=== PATIENT | female | born 1950 | race Caucasian/White ===

== ENCOUNTER 2018-12-22 18:03 | Inpatient (IN) | payer MEDICAID, MEDICARE, OTHER ==
[2018-12-22 18:54] LABS: BASO # 0.1 K/uL (0.0-0.2); BASO % 0.8 % (0.0-2.0); EOS # 0.2 K/uL (0.0-0.7); HEMOGLOBIN 10.8 g/dL (11.0-16.0); LYMPH % 31.4 % (20.0-40.0); MEAN CORPUSCULAR HEMOGLOBIN 28.3 pg (27.0-31.0); MEAN CORPUSCULAR HGB CONC 32.6 g/dL (33.0-37.0); MEAN PLATELET VOLUME 7.9 fL (7.2-11.7); MONO # 0.3 K/uL (0.0-0.8); MONO % 4.2 % (0.0-10.0); NEUT # 3.8 K/uL (1.8-7.0); NEUT % 60.6 % (50.0-75.0); RBC 3.81 Mil/uL (3.80-5.20); RED CELL DISTRIBUTION WIDTH 14.1 % (11.5-14.5); WHITE BLOOD COUNT 6.2 K/uL (4.8-10.8)
[2018-12-22 19:06] LABS: ALB/GLOB RATIO 1.2 (1.0-2.1); ALBUMIN 4.2 g/dL (3.5-5.0)
[2018-12-22 19:18] LABS: TROPONIN I 0.024 ng/mL (0.00-0.120)
--- NOTE | 2018-12-22 19:40 | C.PDOC ---
History Of Present Illness 68 year old female presents to the emergency department with complaints of near- syncope episodes for the last three days. Patient reports feeling generally week but denies chest pain, shortness of breath, nausea, and vomiting. Patient reports that her episode today was while she was in the kitchen preparing food when she felt like she was going to pass out. Time Seen by Provider: 12/22/18 18:33 Chief Complaint (Nursing): Weakness/Neurological Deficit History Per: Patient History/Exam Limitations: no limitations Onset/Duration Of Symptoms: Days (3) Current Symptoms Are (Timing): Still Present Activity At Onset Of Symptoms: Standing Seizure Or Post-ictal Symptoms: None Fall Associated With With Symptoms: No Past Medical History Reviewed: Historical Data, Nursing Documentation, Vital Signs Vital Signs: Last Vital Signs Temp 98.6 F 12/22/18 18:14 Pulse 76 12/22/18 18:14 Resp 20 12/22/18 18:14 BP 173/75 H 12/22/18 18:14 Pulse Ox 97 12/22/18 18:14 - Medical History PMH: Diabetes, HTN, Hypercholesterolemia, Chronic Kidney Disease Surgical History: No Surg Hx Family History: States: No Known Family Hx - Social History Hx Alcohol Use: No Hx Substance Use: No - Immunization History Hx Tetanus Toxoid Vaccination: No Hx Influenza Vaccination: No Hx Pneumococcal Vaccination: No Review Of Systems Except As Marked, All Systems Reviewed And Found Negative. Constitutional: Positive for: Weakness Physical Exam - Physical Exam Appears: Non-toxic, No Acute Distress Skin: Normal Color, Warm, Dry Head: Atraumatic, Normacephalic Eye(s): bilateral: Normal Inspection, PERRL, EOMI Ear(s): Bilateral: Normal Nose: Normal Oral Mucosa: Moist Neck: Normal, Supple Cardiovascular: Rhythm Regular, No Murmur Respiratory: Normal Breath Sounds, No Rales, No Rhonchi Gastrointestinal/Abdominal: Soft, No Tenderness, No Guarding, No Rebound Extremity: Normal ROM Neurological/Psych: Oriented x3, Normal Speech, Normal Cognition, Normal Motor, Normal Sensation Gait: Steady ED Course And Treatment - Laboratory Results Result Diagrams: 12/22/18 18:51 12/22/18 18:51 Lab Results: Troponin I 0.0240 ng/mL (0.00-0.120) 12/22/18 18:51 NT-Pro-B Natriuret Pep 103 pg/mL (0-900) 12/22/18 18:51 Total Bilirubin 0.3 mg/dL (0.2-1.3) 12/22/18 18:51 AST 26 U/L (14-36) 12/22/18 18:51 ALT 14 U/L (9-52) 12/22/18 18:51 Alkaline Phosphatase 85 U/L (38-126) 12/22/18 18:51 Total Protein 7.6 g/dL (6.3-8.3) 12/22/18 18:51 Albumin 4.2 g/dL (3.5-5.0) 12/22/18 18:51 Globulin 3.4 gm/dL (2.2-3.9) 12/22/18 18:51 Albumin/Globulin Ratio 1.2 (1.0-2.1) 12/22/18 18:51 Interpretation Of ECG: Normal sinus rhythm at 71bpm, normal intervals, normal axis, T-wave inversion in lead 1, AVL, and V6. O2 Sat by Pulse Oximetry: 97 (RA) Pulse Ox Interpretation: Normal Medical Decision Making Medical Decision Making: Plan: CT Head EKG Chemistry CBC CXR Glucose POC Urinalysis Disposition Discussed With Dr.: Carlos Alvarado Doctor Will See Patient In The: Hospital Counseled Patient/Family Regarding: Studies Performed, Diagnosis - Disposition Disposition: HOSPITALIZED Disposition Time: 21:28 Condition: FAIR Forms: [facility] (Amharic) - Clinical Impression Clinical Impression: Near syncope - Scribe Statement The provider has reviewed the documentation as recorded by the Scribe (Husam Connell) Provider Attestation: All medical record entries made by the Scribe were at my direction and personally dictated by me. I have reviewed the chart and agree that the record accurately reflects my personal performance of the history, physical exam, medical decision making, and the department course for this patient. I have also personally directed, reviewed, and agree with the discharge instructions and disposition.
[2018-12-22 21:14] LABS: SQUAMOUS EPITHIAL 1 /hpf (0-5); URINE BACTERIA MANY (<OCC); URINE BILIRUBIN NEGATIVE (NEGATIVE); URINE BLOOD NEGATIVE (NEGATIVE); URINE CLARITY Hazy (Clear); URINE COLOR Yellow (YELLOW); URINE GLUCOSE (UA) NORMAL (Normal); URINE LEUKOCYTE ESTERASE NEG Leu/uL (Negative); URINE PROTEIN 3+ mg/dL (NEGATIVE); URINE UROBILINOGEN NORMAL mg/dL (0.2-1.0)
--- NOTE | 2018-12-23 02:06 | CP.PCM.HP ---
<MickymarisolTa - Last Filed: 12/23/18 02:17> History of Present Illness - History of Present Illness History of Present Illness: PGY-1 History and Physical [address] Alvarado Patient is a 68 year old female with PMHx HTN, DM who presents with syncopal episode. Patient states for past 3 days she has been feeling increasingly dizzy and weak. Patient notes that symptoms roughly correspond with a medication change - patient was taken off of Losartan for worsening renal function and placed on Cardura for blood pressure. Patient believes that once she started taking Cardura she noticed herself having episodes of lightheadedness, feeling faint. This morning, patient was in the kitchen and noticed herself beginning to feel faint. She reports she tried to remain standing, but ended up falling to the floor - not sure if hit her head directly, did not lose consciousness. Patient also notes that she was recently started on Lasix as well for peripheral edema. She reports additionally that she snores at night, awakens frequently, and has been increasingly fatigued during the day and sleeping during the day over the past year. Patient was planned to go for sleep study this week prior to hospitalization. Med hx: HTN, DM, HLD All: NKA Medications: Cardura (dose unknown, recently switched as stated above), lipitor 40 mg PO HS, Levemir 50 U SC in morning and at bedtime (has been taking less based on POC glucose), Novolog 15 U SC TID (has been taking less based on POC glucose) Surgeries: None Family hx: Multiple family members with DM, HTN Social hx: Quit smoking 1986, denies drugs, alcohol PMD: None Endo: Dr. Crystal Nephro: Dr. Villar (sees most frequently) Present on Admission - Present on Admission Any Indicators Present on Admission: No Review of Systems - Constitutional Constitutional: absent: Chills, Fatigue, Fever - EENT Eyes: absent: Blurred Vision, Photophobia Nose/Mouth/Throat: absent: Nasal Congestion, Nasal Discharge - Cardiovascular Cardiovascular: Lightheadedness. absent: Chest Pain, Chest Pain at Rest, Dyspnea, Dyspnea on Exertion, Edema, Palpitations, Rapid Heart Rate - Respiratory Respiratory: Snoring. absent: Cough, Dyspnea - Gastrointestinal Gastrointestinal: absent: Diarrhea, Nausea, Vomiting - Genitourinary Genitourinary: absent: Dysuria, Flank Pain - Musculoskeletal Musculoskeletal: absent: Stiffness, Tingling - Neurological Neurological: Dizziness, Syncope, Weakness. absent: Abnormal Speech, Behavioral Changes, Confusion, Numbness, Headaches, Memory Loss - Psychiatric Psychiatric: absent: Anxiety, Depression Past Patient History - Past Social History Smoking Status: Never Smoked - CARDIAC Hx Hypercholesterolemia: Yes Hx Hypertension: Yes - RENAL Hx Chronic Kidney Disease: Yes - ENDOCRINE/METABOLIC Hx Endocrine Disorders: Yes Hx Diabetes Mellitus Type 2: Yes - PSYCHIATRIC Hx Substance Use: No - SURGICAL HISTORY Hx Surgeries: Yes Hx Section: Yes - ANESTHESIA Hx Anesthesia: No Meds Allergies/Adverse Reactions: Allergies Allergy/AdvReac Type Severity Reaction Status Date / Time No Known Allergies Allergy Verified 06/25/16 10:47 Physical Exam - Constitutional Appears: Non-toxic, No Acute Distress - Head Exam Head Exam: ATRAUMATIC, NORMOCEPHALIC - Eye Exam Eye Exam: EOMI, Normal appearance - ENT Exam ENT Exam: Mucous Membranes Moist - Neck Exam Neck exam: Positive for: Normal Inspection. Negative for: Tenderness - Respiratory Exam Respiratory Exam: Clear to Auscultation Bilateral, NORMAL BREATHING PATTERN. absent: Rhonchi, Wheezes - Cardiovascular Exam Cardiovascular Exam: REGULAR RHYTHM, +S1, +S2 - GI/Abdominal Exam GI & Abdominal Exam: Normal Bowel Sounds, Soft. absent: Tenderness - Extremities Exam Extremities exam: Negative for: pedal edema, tenderness - Neurological Exam Neurological exam: Alert, CN II-XII Intact, Oriented x3 - Psychiatric Exam Psychiatric exam: Normal Affect, Normal Mood - Skin Skin Exam: Dry, Intact Results - Vital Signs Recent Vital Signs: Last Vital Signs Temp 98.6 F 12/22/18 18:14 Pulse 97 H 12/23/18 01:00 Resp 14 12/23/18 01:00 BP 164/87 H 12/23/18 01:00 Pulse Ox 97 12/23/18 01:00 - Labs Result Diagrams: 12/22/18 18:51 12/22/18 18:51 Labs: Laboratory Results - last 24 hr 12/22/18 12/22/18 12/22/18 18:42 18:51 18:51 WBC 6.2 RBC 3.81 Hgb 10.8 L Hct 33.1 L MCV 87.0 MCH 28.3 MCHC 32.6 L RDW 14.1 Plt Count 221 MPV 7.9 Neut % (Auto) 60.6 Lymph % (Auto) 31.4 Sterling % (Auto) 4.2 Eos % (Auto) 3.0 Baso % (Auto) 0.8 Neut # (Auto) 3.8 Lymph # (Auto) 2.0 Sterling # (Auto) 0.3 Eos # (Auto) 0.2 Baso # (Auto) 0.1 Sodium 136 Potassium 4.9 Chloride 104 Carbon Dioxide 23 Anion Gap 14 BUN 54 H Creatinine 2.7 H Est GFR ( Amer) 21 Est GFR (Non-Af Amer) 18 POC Glucose (mg/dL) 173 H Random Glucose 164 H Calcium 9.0 Total Bilirubin 0.3 AST 26 ALT 14 Alkaline Phosphatase 85 Troponin I 0.0240 NT-Pro-B Natriuret Pep 103 Total Protein 7.6 Albumin 4.2 Globulin 3.4 Albumin/Globulin Ratio 1.2 Urine Color Urine Clarity Urine pH Ur Specific Lisman Urine Protein Urine Glucose (UA) Urine Ketones Urine Blood Urine Nitrate Urine Bilirubin Urine Urobilinogen Ur Leukocyte Esterase Urine WBC (Auto) Urine RBC (Auto) Ur Squamous Epith Cells Urine Bacteria 12/22/18 12/22/18 20:54 23:21 WBC RBC Hgb Hct MCV MCH MCHC RDW Plt Count MPV Neut % (Auto) Lymph % (Auto) Sterling % (Auto) Eos % (Auto) Baso % (Auto) Neut # (Auto) Lymph # (Auto) Sterling # (Auto) Eos # (Auto) Baso # (Auto) Sodium Potassium Chloride Carbon Dioxide Anion Gap BUN Creatinine Est GFR ( Amer) Est GFR (Non-Af Amer) POC Glucose (mg/dL) 121 H Random Glucose Calcium Total Bilirubin AST ALT Alkaline Phosphatase Troponin I NT-Pro-B Natriuret Pep Total Protein Albumin Globulin Albumin/Globulin Ratio Urine Color Yellow Urine Clarity Hazy Urine pH 5.0 Ur Specific Lisman 1.009 Urine Protein 3+ H Urine Glucose (UA) Normal Urine Ketones Negative Urine Blood Negative Urine Nitrate Negative Urine Bilirubin Negative Urine Urobilinogen Normal Ur Leukocyte Esterase Neg Urine WBC (Auto) 6 H Urine RBC (Auto) < 1 Ur Squamous Epith Cells 1 Urine Bacteria Many H Assessment & Plan - Assessment and Plan (Free Text) Assessment: Syncope; Suspect 2/2 New HTN Medication -Initial orthostatics WNL --Repeat orthostatics Q6 -Fall precautions -Home Cardura, Lasix held -EKG/ROMIs WNL -F/u AM trops -F/u CT head, CXR Renal failure, chronic -Cr 2.7 -Patient says she will obtain recent medical records to compare change in creatinine - f/u DM -A1C - f/u -Consistent carb diet -Levemir 40 mg Q12, Novolog 10 mg with meals -Accuchecks ACHS HLD -Crestor 20 mg PO HS Assessment and plan d/w Dr. Jenny Emanuel, PGY-1 <Carlos Alvarado P - Last Filed: 12/23/18 07:22> Results - Vital Signs Recent Vital Signs: Last Vital Signs Temp 98 F 12/23/18 04:15 Pulse 78 12/23/18 04:20 Resp 18 12/23/18 04:15 BP 189/72 H 12/23/18 04:20 Pulse Ox 98 12/23/18 04:15 - Labs Result Diagrams: 12/22/18 18:51 12/22/18 18:51 Labs: Laboratory Results - last 24 hr 12/22/18 12/22/18 12/22/18 18:42 18:51 18:51 WBC 6.2 RBC 3.81 Hgb 10.8 L Hct 33.1 L MCV 87.0 MCH 28.3 MCHC 32.6 L RDW 14.1 Plt Count 221 MPV 7.9 Neut % (Auto) 60.6 Lymph % (Auto) 31.4 Sterling % (Auto) 4.2 Eos % (Auto) 3.0 Baso % (Auto) 0.8 Neut # (Auto) 3.8 Lymph # (Auto) 2.0 Sterling # (Auto) 0.3 Eos # (Auto) 0.2 Baso # (Auto) 0.1 Sodium 136 Potassium 4.9 Chloride 104 Carbon Dioxide 23 Anion Gap 14 BUN 54 H Creatinine 2.7 H Est GFR ( Amer) 21 Est GFR (Non-Af Amer) 18 POC Glucose (mg/dL) 173 H Random Glucose 164 H Calcium 9.0 Total Bilirubin 0.3 AST 26 ALT 14 Alkaline Phosphatase 85 Total Creatine Kinase CK-MB (Mass) Troponin I 0.0240 NT-Pro-B Natriuret Pep 103 Total Protein 7.6 Albumin 4.2 Globulin 3.4 Albumin/Globulin Ratio 1.2 Urine Color Urine Clarity Urine pH Ur Specific Lisman Urine Protein Urine Glucose (UA) Urine Ketones Urine Blood Urine Nitrate Urine Bilirubin Urine Urobilinogen Ur Leukocyte Esterase Urine WBC (Auto) Urine RBC (Auto) Ur Squamous Epith Cells Urine Bacteria 12/22/18 12/22/18 12/23/18 20:54 23:21 05:26 WBC RBC Hgb Hct MCV MCH MCHC RDW Plt Count MPV Neut % (Auto) Lymph % (Auto) Sterling % (Auto) Eos % (Auto) Baso % (Auto) Neut # (Auto) Lymph # (Auto) Sterling # (Auto) Eos # (Auto) Baso # (Auto) Sodium Potassium Chloride Carbon Dioxide Anion Gap BUN Creatinine Est GFR ( Amer) Est GFR (Non-Af Amer) POC Glucose (mg/dL) 121 H Random Glucose Calcium Total Bilirubin AST ALT Alkaline Phosphatase Total Creatine Kinase 235 H CK-MB (Mass) 2.07 Troponin I 0.0220 NT-Pro-B Natriuret Pep Total Protein Albumin Globulin Albumin/Globulin Ratio Urine Color Yellow Urine Clarity Hazy Urine pH 5.0 Ur Specific Lisman 1.009 Urine Protein 3+ H Urine Glucose (UA) Normal Urine Ketones Negative Urine Blood Negative Urine Nitrate Negative Urine Bilirubin Negative Urine Urobilinogen Normal Ur Leukocyte Esterase Neg Urine WBC (Auto) 6 H Urine RBC (Auto) < 1 Ur Squamous Epith Cells 1 Urine Bacteria Many H 12/23/18 07:09 WBC RBC Hgb Hct MCV MCH MCHC RDW Plt Count MPV Neut % (Auto) Lymph % (Auto) Sterling % (Auto) Eos % (Auto) Baso % (Auto) Neut # (Auto) Lymph # (Auto) Sterling # (Auto) Eos # (Auto) Baso # (Auto) Sodium Potassium Chloride Carbon Dioxide Anion Gap BUN Creatinine Est GFR ( Amer) Est GFR (Non-Af Amer) POC Glucose (mg/dL) 118 H Random Glucose Calcium Total Bilirubin AST ALT Alkaline Phosphatase Total Creatine Kinase CK-MB (Mass) Troponin I NT-Pro-B Natriuret Pep Total Protein Albumin Globulin Albumin/Globulin Ratio Urine Color Urine Clarity Urine pH Ur Specific Lisman Urine Protein Urine Glucose (UA) Urine Ketones Urine Blood Urine Nitrate Urine Bilirubin Urine Urobilinogen Ur Leukocyte Esterase Urine WBC (Auto) Urine RBC (Auto) Ur Squamous Epith Cells Urine Bacteria Attending/Attestation - Attestation I have personally seen and examined this patient.: Yes I have fully participated in the care of the patient.: Yes I have reviewed all pertinent clinical information: Yes Notes (Text): 12/23/18 07:18 Near syncope due most likely form newer bp med, symptoms started 3 days, and med started 4 days, EKG showing LVH with strain pattern, suggesting chronic htn, lvh Leg edema from above and venous insufficiency CRI Suspect sleep apnea from the symptoms, body habitus, scheduled out patient sleep apnea Obese Insulin dependent dm Plan Observe bri Gaspar orthostatic bp Counselled about above Echo as out patient with pmd Will try to communicate with pmd in [place].
[2018-12-23 06:03] LABS: CK-MB 2.07 ng/mL (0.0-3.38); TROPONIN I 0.022 ng/mL (0.00-0.120)
[2018-12-23] MEDS ORDERED: Glucagon Recombinant 1 mg Inj IM PRN ×2 (07:18→07:45)
[2018-12-23] MEDS ORDERED: Dextrose 50% SYRINGE Inj (50 ml) IVP PRN (07:18)
--- NOTE | 2018-12-23 07:36 | CP.PCM.PN ---
<Dipti Ivey V - Last Filed: 12/23/18 19:43> Objective - Vital Signs/Intake and Output Vital Signs (last 24 hours): Temp Pulse Resp BP Pulse Ox 98.4 F 80 18 166/76 H 96 12/23/18 16:00 12/23/18 18:41 12/23/18 18:41 12/23/18 18:41 12/23/18 18:41 Intake and Output: 12/23/18 12/24/18 18:59 06:59 Intake Total 800 Balance 800 - Medications Medications: Current Medications Amlodipine Besylate (Norvasc) 5 mg PO DAILY [facility] Amlodipine Besylate (Norvasc) 5 mg PO STAT STA Stop: 12/23/18 19:43 Dextrose (Dextrose 50% Inj) 0 ml IVP .STAT PRN; Protocol PRN Reason: Hypoglycemia Protocol Dextrose (Glutose 15) 0 gm PO .ONCE PRN; Protocol PRN Reason: Hypoglycemia Protocol Dextrose (Dextrose 50% Inj) 0 ml IV STAT PRN; Protocol PRN Reason: Hypoglycemia Protocol Dextrose (Glutose 15) 0 gm PO ONCE PRN; Protocol PRN Reason: Hypoglycemia Protocol Famotidine (Pepcid) 20 mg PO DAILY [facility] Glucagon (Glucagen Diagnostic Kit) 0 mg IM .STAT PRN; Protocol PRN Reason: Hypoglycemia Protocol Glucagon (Glucagen Diagnostic Kit) 0 mg IM STAT PRN; Protocol PRN Reason: Hypoglycemia Protocol Heparin Sodium (Porcine) (Heparin) 5,000 units SC Q8 [facility] Last Admin: 12/23/18 13:42 Dose: 5,000 units Dextrose (Dextrose 5% In Water 1000 Ml) 1,000 mls @ 0 mls/hr IV .Q0M PRN; Protocol PRN Reason: Hypoglycemia Protocol Dextrose (Dextrose 5% In Water 1000 Ml) 1,000 mls @ 0 mls/hr IV .Q0M PRN; Pro tocol PRN Reason: Hypoglycemia Protocol Insulin Aspart (Novolog) 10 unit SC AC [facility] Last Admin: 12/23/18 16:14 Dose: Not Given Insulin Detemir (Levemir) 40 unit SC Q12 [facility] Last Admin: 12/23/18 10:01 Dose: 40 units Rosuvastatin Calcium (Crestor) 20 mg PO HS [facility] - Labs Labs: 12/23/18 07:54 12/23/18 05:26 Attending/Attestation - Attestation I have personally seen and examined this patient.: Yes I have fully participated in the care of the patient.: Yes I have reviewed all pertinent clinical information, including history, physical exam and plan: Yes Notes (Text): Patient seen, examined. This is a 68-year-old female with a 20-year history of diabetes insulin-dependent who has underlying kidney disease per daughter a GFR of 18. She was recently started on Cardura last by her software engineer web services in [place] who she started seeing. She has been noted since starting Cardura that she has been lightheaded and dizzy last dose of the car door was on Sunday. She is also been taking Lasix to reduce the lower extremity swelling as well. Which she is currently off. This morning patient was hypertensive urgency with a systolic around 180s given 1 dose of Norvasc 5 mg once. On repeat shortly after patient is noted to be orthostatic which is surprising considering how she how she appears. We did change BP cuff as well just to accommodate her obese habitus but she is not orthostatic noted. We did consult cardiology given how l abile her blood pressure is. Noted d-dimer is negative troponins are negative. She does have flipped T waves noted in lead I 5 and 6 no prior. She is noted to be eating some melon diet wearing a high fat is typical. 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 Patient is undergoing workup with her software engineer web services in [place] as outpatient. Assessment/Plan 1. Near syncopal episode Liable Blood Pressure Assessment/Plan * monitor on telemetry * CT head: no acute intracranial abnormality. chronic microvascular ischemic changes. punctate left basal gangliar infarct. * CXR: no acute disease * D-dimer <200 * Follow up ECHO, carotid dopplers * Trop x3 neg * ABRAHAM: CK 235 CKMB 2.07 Trop 0.0220 * Orthostatics Lying 153/57 Sitting 145/65 Standing 130/60 * EKG: SR with flipped T waves in lead 1, V5, V6 * Cardiology Dr. Velázquez consulted, help appreciated * Patient is off her Cardura/Lasix 2. Renal failure, likely chronic Assessment/Plan * Cr 2.8 * Continue to monitor * patient is being followed by her nephrology in [facility] 3. Anemia, likely chronic Assessment/Plan * H/H 10.5/32.6 * MCV 87 * check reticulocyte count, ferritin, iron studies 4. History of hypertension Assessment/Plan * d/c cadura/lasix * start Norvasc 5mg PO once day 5. History of DM, insulin dependent Assessment/Plan * Patient states she has uncontrolled blood sugar levels when she was in [place] but has been taking her insulin as prescribed after she arrived to the last month * Levemir 40 unit SC Q12 * Novolog 10 unit SC AC * A1c 7.9 * Patient counseled on the importance of following up with ophthalmology and podiatry for her annual diabetic screening exams and changing overrall diet 6. History of hyperlipidemia Assessment/Plan * Crestor 20mg PO HS * Lipid panel pending * Counseled on the importance of changing diet. 7. Prophylaxis: Assessment/Plan * Heparin 5000 units SC Q8 * Heart healthy diet * PT/OT eval * Fall precautions <Elysia Tomlin - Last Filed: 12/23/18 19:59> Subjective - Date & Time of Evaluation Date of Evaluation: 12/23/18 Time of Evaluation: 07:36 - Subjective Subjective: Progress Note for Hospitalist service Patient seen and examined at bedside. She states she was recently switched from Losartan to Cardura and started on Lasix for lower extremity edema by a Nephrology at [facility], which she has been taking since 12/19/18. She admits to feeling lightheaded since starting these medications. She states she does not feel lightheaded or weak currently. She denies fevers, chills, headache, chest pain, shortness of breath, palpitations, abdominal pain, nausea, vomiting, diarrhea, leg pain. She recently traveled here from [place]. She denies sick contacts. Admits to have tingling of her lower extremities, however denies being told she has neuropathy. Objective - Vital Signs/Intake and Output Vital Signs (last 24 hours): Temp Pulse Resp BP Pulse Ox 98 F 78 18 189/72 H 98 12/23/18 04:15 12/23/18 04:20 12/23/18 04:15 12/23/18 04:20 12/23/18 04:15 Intake and Output: 12/23/18 12/23/18 06:59 18:59 Intake Total 0 Balance 0 - Medications Medications: Current Medications Amlodipine Besylate (Norvasc) 5 mg PO DAILY [facility] Dextrose (Dextrose 50% Inj) 0 ml IVP .STAT PRN; Protocol PRN Reason: Hypoglycemia Protocol Dextrose (Glutose 15) 0 gm PO .ONCE PRN; Protocol PRN Reason: Hypoglycemia Protocol Glucagon (Glucagen Diagnostic Kit) 0 mg IM .STAT PRN; Protocol PRN Reason: Hypoglycemia Protocol Heparin Sodium (Porcine) (Heparin) 5,000 units SC Q8 [facility] Last Admin: 12/23/18 06:26 Dose: 5,000 units Dextrose (Dextrose 5% In Water 1000 Ml) 1,000 mls @ 0 mls/hr IV .Q0M PRN; Protocol PRN Reason: Hypoglycemia Protocol Insulin Aspart (Novolog) 10 unit SC AC [facility] Insulin Detemir (Levemir) 40 unit SC Q12 [facility] Rosuvastatin Calcium (Crestor) 20 mg PO HS [facility] - Labs Labs: 12/22/18 18:51 12/22/18 18:51 - Constitutional Appears: Well, No Acute Distress - Head Exam Head Exam: ATRAUMATIC, NORMOCEPHALIC - Eye Exam Eye Exam: EOMI, PERRL - ENT Exam ENT Exam: Mucous Membranes Moist - Neck Exam Neck Exam: Full ROM. absent: Tenderness - Respiratory Exam Respiratory Exam: Clear to Ausculation Bilateral, NORMAL BREATHING PATTERN. absent: Rales, Rhonchi, Wheezes, Respiratory Distress, Stridor - Cardiovascular Exam Cardiovascular Exam: REGULAR RHYTHM, +S1, +S2. absent: Gallop, Rubs, Murmur - GI/Abdominal Exam GI & Abdominal Exam: Soft, Normal Bowel Sounds. absent: Distended, Firm, Guarding, Rigid, Tenderness, Organomegaly - Extremities Exam Extremities Exam: Normal Capillary Refill. absent: Calf Tenderness, Pedal Edema - Back Exam Back Exam: NORMAL INSPECTION. absent: CVA tenderness (L), CVA tenderness (R) - Neurological Exam Neurological Exam: Alert, Awake, Oriented x3 Additional comments: No tremor noted. - Psychiatric Exam Psychiatric exam: Normal Affect, Normal Mood - Skin Skin Exam: Dry, Intact, Warm Assessment and Plan - Assessment and Plan (Free Text) Assessment: 68 year old female with history of diabetes, hypertension and hyperlipidemia who presents with near syncopal episode after recently starting new blood pressure medication. Plan: Near syncopal episode CT head: no acute intracranial abnormality. chronic microvascular ischemic changes. punctate left basal gangliar infarct. CXR: no acute disease D-dimer <200 Follow up ECHO, carotid dopplers Trop x3 neg ABRAHAM: CK 235 CKMB 2.07 Trop 0.0220 Orthostatics Lying 153/57 Sitting 145/65 Standing 130/60 Repeat orthostatic Lying 176/78 Sitting 170/74 Standing 166/79 EKG: SR with flipped T waves in lead 1, V5, V6 Cardiology Dr. Velázquez consulted, help appreciated Renal failure, likely chronic BUN 50 Cr 2.8 Continue to monitor Anemia, mild H/H 10.5/32.6 MCV 87 Continue to monitor for signs of bleeding History of hypertension Norvasc 5mg PO daily BP labile, repeat Norvasc 5mg PO x1 given History of DM, uncontrolled Patient states she has uncontrolled blood sugar levels when she was in [place] but has been taking her insulin as prescribed after she arrived to the last month Levemir 40 unit SC Q12 Novolog 10 unit SC AC A1c 7.9 Patient counseled on the importance of following up with ophthalmology and podiatry. Patient was also counseling on diet. Hypoglycemic protocol History of hyperlipidemia Crestor 20mg PO HS Lipid panel pending Counseled on the importance of changing diet. Fish oil supplement Prophylaxis: Heparin 5000 units SC Q8 Heart healthy diet Pepcid 20mg PO Case discussed with Dr. Uche Tomlin, PGY1
[2018-12-23] MEDS ORDERED: Dextrose 50% SYRINGE Inj (50 ml) IV PRN (07:45)
--- NOTE | 2018-12-23 07:55 | CT ---
Date of service: 12/22/2018 PROCEDURE: CT HEAD WITHOUT CONTRAST. HISTORY: dizziness COMPARISON: None available. TECHNIQUE: Axial computed tomography images were obtained through the head/brain without intravenous contrast. Radiation dose: Total exam DLP = 1207.06 mGy-cm. This CT exam was performed using one or more of the following dose reduction techniques: Automated exposure control, adjustment of the mA and/or kV according to patient size, and/or use of iterative reconstruction technique. FINDINGS: HEMORRHAGE: No intracranial hemorrhage. BRAIN: No mass effect or edema. Scattered focal lucencies in the subcortical and periventricular white matter suggestive for chronic microvascular ischemic change. Punctate hypodensity in the left basal ganglia may represent a small lacunar infarct. VENTRICLES: Unremarkable. No hydrocephalus. CALVARIUM: Unremarkable. PARANASAL SINUSES: Mild mucosal thickening of the ethmoid air cells. MASTOID AIR CELLS: Unremarkable as visualized. No inflammatory changes. OTHER FINDINGS: None. IMPRESSION: No acute intracranial abnormality. Chronic microvascular ischemic changes. Punctate left basal ganglia lacunar infarct. If symptoms persists, consider correlation with MRI. A preliminary report was generated at 8:53 p.m. on 12/22/[address] Cisco Zhou from [facility].
[2018-12-23 07:56] LABS: ALB/GLOB RATIO 1.3 (1.0-2.1); ALBUMIN 4.1 g/dL (3.5-5.0); CALCIUM 9.1 mg/dl (8.6-10.4)
[2018-12-23 07:59] LABS: BASO # 0.1 K/uL (0.0-0.2); BASO % 1.2 % (0.0-2.0); EOS # 0.2 K/uL (0.0-0.7); HEMOGLOBIN 10.5 g/dL (11.0-16.0); LYMPH # 2.5 K/uL (1.0-4.3); MEAN CELL VOLUME 87.8 fL (81.0-99.0); MEAN CORPUSCULAR HEMOGLOBIN 28.3 pg (27.0-31.0); MEAN CORPUSCULAR HGB CONC 32.3 g/dL (33.0-37.0); MEAN PLATELET VOLUME 7.8 fL (7.2-11.7); MONO # 0.3 K/uL (0.0-0.8); MONO % 5.1 % (0.0-10.0); NEUT % 48.7 % (50.0-75.0); RBC 3.72 Mil/uL (3.80-5.20); RED CELL DISTRIBUTION WIDTH 14.1 % (11.5-14.5); WHITE BLOOD COUNT 6.2 K/uL (4.8-10.8)
[2018-12-23] MEDS: (Novolog) Insulin Aspart, Recombinant 100 u/ml 10 ml vial SC SCH ×3 (08:41→16:14)
[2018-12-23] MEDS: Insulin Detemir 100 units/ml Vial (Levemir) SC SCH ×2 (10:01→22:13)
[2018-12-23 10:35] LABS: CK-MB 1.85 ng/mL (0.0-3.38); TROPONIN I 0.021 ng/mL (0.00-0.120)
--- NOTE | 2018-12-23 12:04 | RAD ---
Date of service: 12/22/2018 PROCEDURE: CHEST RADIOGRAPH, 1 VIEW HISTORY: SOB COMPARISON: None available. FINDINGS: LUNGS: The lungs are well inflated and clear. PLEURA: No pneumothorax or pleural effusion. CARDIOVASCULAR: Mild cardiomegaly. No aortic atherosclerotic calcifications present. OSSEOUS STRUCTURES: Within normal limits for the patient's age. VISUALIZED UPPER ABDOMEN: Normal. OTHER FINDINGS: None. IMPRESSION: No active pulmonary disease.
--- NOTE | 2018-12-23 21:34 | CON ---
DATE: 12/23/2016 CARDIOLOGY CONSULTATION: REASON FOR CONSULTATION: Dizziness and near-syncope. HISTORY OF PRESENT ILLNESS: The patient is a 68-year-old morbidly obese female from the [facility], presents because of dizziness and near-syncope. The patient describes that she was standing in the kitchen, she felt lightheaded and about to faint and for the patient to avoid it, she started to move fast, started jumping around to refresh herself. The patient denies any recent fall. The patient was brought in to the hospital by her daughter. The dizziness had subsided upon arrival to the emergency room. The patient denies any single extremity weakness or difficulty articulating her speech. The patient is unaware of any prior cardiac history. The patient does not recall experiencing palpitation. The patient denies any prior nausea, vomiting, or diarrhea. The patient denies any prior similar clinical scenario. PAST MEDICAL HISTORY: Hypertension and diabetes mellitus. The patient has severe infection. MEDICATIONS: Crestor 20 mg once a day, subcutaneous heparin 5000 units every 8 hours, Norvasc 5 mg once a day. REVIEW OF SYSTEMS: No nausea or vomiting. No fever or chills. No retrosternal chest pain. The patient does not recall palpitations. PHYSICAL EXAMINATION: GENERAL: The patient is an elderly female, who does not appear to be in any distress. VITAL SIGNS: Blood pressure 153/57, heart rate 79, temperature 97.9, respirations 20. HEENT: Pale conjunctivae. CHEST: Clear. HEART: S1 and S2, regular and distant. ABDOMEN: Soft. EXTREMITIES: Trace leg edema. LABORATORY DATA: SMA-7: Sodium 138, potassium 4.3, chloride 108, CO2 of 21, glucose 117, BUN 50, creatinine 2.8. Two sets of troponin are 0.024 and 0.022 and the second one is 0.021. D-dimers are stable at 200. Today's hemoglobin and hematocrit at 10.5 and 32.6. White count and platelet counts are within normal limits. CT scan without contrast showed no acute findings. Chronic microvascular ischemic changes. Chronic basal ganglia and lacunar infarcts. If symptoms persist, consider correlation with MRI. Chest x-ray shows no active pulmonary disease. ASSESSMENT: 1. Dizziness and near-syncope. 2. Hypertension. 3. Mild anemia. 4. Chronic renal insufficiency. RECOMMENDATIONS: Continue currently Crestor 20 mg once a day, heparin 5000 units subcutaneous every 8 hours, Norvasc at 5 mg once a day. Obtain 12-lead EKG, echocardiogram, carotid Doppler and consider brain MRI. Jose Velázquez MD
[2018-12-24 06:29] LABS: BASO # 0.1 K/uL (0.0-0.2); BASO % 1.3 % (0.0-2.0); EOS # 0.3 K/uL (0.0-0.7); EOS % 4.7 % (0.0-4.0); HEMOGLOBIN 11.4 g/dL (11.0-16.0); LYMPH % 48.1 % (20.0-40.0); MEAN CELL VOLUME 87.6 fL (81.0-99.0); MEAN CORPUSCULAR HEMOGLOBIN 28.2 pg (27.0-31.0); MEAN CORPUSCULAR HGB CONC 32.2 g/dL (33.0-37.0); MEAN PLATELET VOLUME 8.1 fL (7.2-11.7); MONO # 0.3 K/uL (0.0-0.8); MONO % 4.3 % (0.0-10.0); NEUT # 2.6 K/uL (1.8-7.0); NEUT % 41.6 % (50.0-75.0); RBC 4.03 Mil/uL (3.80-5.20); RED CELL DISTRIBUTION WIDTH 14.1 % (11.5-14.5); WHITE BLOOD COUNT 6.2 K/uL (4.8-10.8)
[2018-12-24 06:44] LABS: IRON 64 ug/dL (37-170)
[2018-12-24 06:47] LABS: ALB/GLOB RATIO 1.3 (1.0-2.1); ALBUMIN 4.3 g/dL (3.5-5.0); CALCIUM 9.5 mg/dl (8.6-10.4)
[2018-12-24 06:54] LABS: % IRON SATURATION 22 (20-55); TOTAL IRON BINDING CAPACITY 288 ug/dL (250-450)
[2018-12-24 06:55] LABS: % IRON SATURATION 20 (20-55); TOTAL IRON BINDING CAPACITY 283 ug/dL (250-450)
--- NOTE | 2018-12-24 07:32 | US ---
Renal ultrasound HISTORY: Renal insufficiency. Comparison: None available. Technique: Real-time sonography was performed through the kidneys. FINDINGS: Study somewhat limited secondary to portable technique. Right kidney: 10.3 x 4.3 x 5.4 centimeters. Mild increased echogenicity of the renal parenchymal cortex suggestive for medical renal disease. No calculi or hydronephrosis. Visualized aorta grossly preserved. Left Kidney: 11.2 x 4.2 x 4.6 centimeters. Mild increased echogenicity of the renal parenchymal cortex suggestive for medical renal disease. No calculi or hydronephrosis. Visualized urinary bladder is grossly preserved. Impression: Mild increased echogenicity of the bilateral renal parenchymal cortices suggestive for medical renal disease. Clinical correlation.
[2018-12-24] MEDS: Insulin Detemir 100 units/ml Vial (Levemir) SC SCH ×2 (09:15→22:45)
[2018-12-24] MEDS: (Novolog) Insulin Aspart, Recombinant 100 u/ml 10 ml vial SC SCH ×3 (09:15→17:40)
--- NOTE | 2018-12-24 09:33 | CP.PCM.PN ---
Subjective - Date & Time of Evaluation Date of Evaluation: 12/24/18 Time of Evaluation: 09:30 - Subjective Subjective: Medical attending note: Patient seen and examined. patient reports she feels foggy. denies chest pain, denies cough, denies abdominal pain, denies nausea/denies vomitting, denies constipation denies dysuria. Discussed with patients nurse, patient saturating 50-60 oxygen overnight, likely suspecting sleep apnea. pending ABG this morning. Patient reports she was scheduled for outpatient sleep study tomorrow but is not being followed by pulmonary. patient is also orthostatic: SBP 180/90s resting and upright 112/50s; discussed with cardio, start gentle hydration and awaiting echocardiogram. Objective - Vital Signs/Intake and Output Vital Signs (last 24 hours): Temp Pulse Resp BP Pulse Ox 98 F 72 14 190/80 H 97 12/24/18 04:00 12/23/18 22:11 12/23/18 22:11 12/23/18 22:11 12/23/18 22:11 Intake and Output: 12/24/18 12/24/18 06:59 18:59 Intake Total 620 Output Total 1100 Balance -480 - Medications Medications: Current Medications Amlodipine Besylate (Norvasc) 5 mg PO DAILY [facility] Last Admin: 12/24/18 09:15 Dose: 5 mg Dextrose (Dextrose 50% Inj) 0 ml IVP .STAT PRN; Protocol PRN Reason: Hypoglycemia Protocol Dextrose (Glutose 15) 0 gm PO .ONCE PRN; Protocol PRN Reason: Hypoglycemia Protocol Dextrose (Dextrose 50% Inj) 0 ml IV STAT PRN; Protocol PRN Reason: Hypoglycemia Protocol Dextrose (Glutose 15) 0 gm PO ONCE PRN; Protocol PRN Reason: Hypoglycemia Protocol Famotidine (Pepcid) 20 mg PO DAILY [facility] Last Admin: 12/24/18 09:15 Dose: 20 mg Glucagon (Glucagen Diagnostic Kit) 0 mg IM .STAT PRN; Protocol PRN Reason: Hypoglycemia Protocol Glucagon (Glucagen Diagnostic Kit) 0 mg IM STAT PRN; Protocol PRN Reason: Hypoglycemia Protocol Heparin Sodium (Porcine) (Heparin) 5,000 units SC Q8 [facility] Last Admin: 12/24/18 05:31 Dose: 5,000 units Dextrose (Dextrose 5% In Water 1000 Ml) 1,000 mls @ 0 mls/hr IV .Q0M PRN; Protocol PRN Reason: Hypoglycemia Protocol Dextrose (Dextrose 5% In Water 1000 Ml) 1,000 mls @ 0 mls/hr IV .Q0M PRN; Protocol PRN Reason: Hypoglycemia Protocol Sodium Chloride (Sodium Chloride 0.9%) 1,000 mls @ 75 mls/hr IV .[id number] [facility] Insulin Aspart (Novolog) 10 unit SC AC [facility] Last Admin: 12/24/18 09:15 Dose: Not Given Insulin Detemir (Levemir) 40 unit SC Q12 [facility] Last Admin: 12/24/18 09:15 Dose: Not Given Rosuvastatin Calcium (Crestor) 20 mg PO HS [facility] Last Admin: 12/23/18 22:12 Dose: 20 mg - Labs Labs: 12/24/18 06:25 12/24/18 06:25 - Constitutional Appears: Non-toxic, No Acute Distress - Head Exam Head Exam: NORMAL INSPECTION - Eye Exam Eye Exam: EOMI - ENT Exam ENT Exam: Mucous Membranes Moist - Respiratory Exam Respiratory Exam: Clear to Ausculation Bilateral, NORMAL BREATHING PATTERN. absent: Rales, Rhonchi, Wheezes - Cardiovascular Exam Cardiovascular Exam: REGULAR RHYTHM, +S1, +S2 - GI/Abdominal Exam GI & Abdominal Exam: Soft, Normal Bowel Sounds. absent: Distended, Firm, Guarding, Rigid, Tenderness, Rebound - Extremities Exam Extremities Exam: absent: Pedal Edema, Tenderness - Neurological Exam Neurological Exam: Alert, Awake, Oriented x3 - Psychiatric Exam Psychiatric exam: Normal Affect, Normal Mood - Skin Skin Exam: Dry, Intact, Normal Color, Warm Attending/Attestation - Attestation I have personally seen and examined this patient.: Yes I have fully participated in the care of the patient.: Yes I have reviewed all pertinent clinical information, including history, physical exam and plan: Yes Notes (Text): Assessment/Plan 1. Near syncopal episode Liable Blood Pressure--Orthostatic Hypotension Assessment/Plan * symptomatinc orthostatic hypotension * pending echo/brain mri * gentle iv hydration started today * monitor on telemetry * CT head: no acute intracranial abnormality. chronic microvascular ischemic changes. punctate left basal gangliar infarct. * pending Brain MRI w/o contrast * pending echocardiogram * pending official cartoid doppler * CXR: no acute disease * D-dimer <200 * Trop x3 neg * ABRAHAM: CK 235 CKMB 2.07 Trop 0.0220 * Orthostatics Lying 153/57 Sitting 145/65 Standing 130/60 * EKG: SR with flipped T waves in lead 1, V5, V6 * Cardiology Dr. Velázquez consulted, help appreciated * Patient is off her Cardura/Lasix since admission 2. Renal failure, likely chronic Assessment/Plan * Cr 2.8 * Continue to monitor * patient is being followed by her nephrology in [facility] * Renal official report available in the chart 3. Anemia, likely chronic Assessment/Plan * H/H 10.5/32.6 * MCV 87 * Reticulocyte count low; ferritin normal; iron studies normal * likely secondary renal disease 4. History of hypertension Assessment/Plan * d/c cadura/lasix * start Norvasc 5mg PO once day 5. History of DM, insulin dependent Assessment/Plan * Patient states she has uncontrolled blood sugar levels when she was in [place] but has been taking her insulin as prescribed after she arrived to the last month * Levemir 40 unit SC Q12 * Novolog 10 unit SC AC * A1c 7.9 * Patient counseled on the importance of following up with ophthalmology and podiatry for her annual diabetic screening exams and changing overrall diet 6. History of hyperlipidemia Assessment/Plan * Crestor 20mg PO HS * Lipid panel available in the emr * Counseled on the importance of changing diet. 7. Hypoxia Assessment/Plan * suspecting sleep apnea * ABG ordered * pulmonary consult obtained 8. 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 Prophylaxis: Assessment/Plan * Heparin 5000 units SC Q8 * Heart healthy diet * PT/OT eval * Fall precautions * neurocheck q4H
[2018-12-24] MEDS: Sodium Chloride 0.9% 1,000 ML IV SCH ×2 (09:38→23:55)
[2018-12-24 11:49] LABS: ARTERIAL BLOOD GAS HCO3 23.5 mmol/L (21-28); ARTERIAL BLOOD GAS HEMOGLOBIN 12.6 g/dL (11.7-17.4); ARTERIAL BLOOD GAS PCO2 42 mm/Hg (35-45); ARTERIAL BLOOD GAS PH 7.36 (7.35-7.45); ARTERIAL BLOOD GAS PO2 76 mm/Hg (80-100)
--- NOTE | 2018-12-24 14:44 | MRI ---
Date of service: 12/24/2018 PROCEDURE: MRI BRAIN WITHOUT CONTRAST HISTORY: Near syncope: Dizziness. COMPARISON: Comparison made with prior CT scan of the brain dated 12/22/2018. TECHNIQUE: Multiplanar, multisequence MR images of the brain were obtained without intravenous contrast enhancement. FINDINGS: HEMORRHAGE: No acute parenchymal, subarachnoid or extra-axial hemorrhage. DWI: No evidence of acute acute or subacute infarcts seen on diffusion imaging. BRAIN PARENCHYMA: There are multiple small focal areas of increased T2 signal seen scattered about the deep and subcortical white matter both cerebral hemispheres as well as to a lesser degree both basal nuclei. Changes are nonspecific though most likely represent chronic sequela of small vessel disease. None of these changes exhibit restricted diffusion.. Partially empty sella Mild generalized volume loss. VENTRICLES: No obstructive hydrocephalus. CRANIUM: Unremarkable. ORBITS: Orbits and contents grossly unremarkable. PARANASAL SINUSES/MASTOIDS: Note made of a mucous retention cyst right maxillary sinus VASCULAR SYSTEM: Visualized major vascular flow voids at skull base patent. OTHER FINDINGS: None. IMPRESSION: No evidence of acute intracranial hemorrhage or infarctions. Mild chronic white matter ischemic changes as well as to a lesser degree both basal nuclei.. Mild generalized volume loss.
--- NOTE | 2018-12-24 17:55 | PN ---
DATE: 12/24/2018 SUBJECTIVE: The patient is still having postural hypotension, but denies any dizziness while standing. PHYSICAL EXAMINATION: VITAL SIGNS: Blood pressure 190/80, heart rate 52, temperature 98, and respirations 14. HEENT: Normocephalic. CHEST: Clear. Heart sounds are regular. EXTREMITIES: Trace leg edema. LABORATORY DATA: Today's BUN and creatinine are 45 and 2.8 respectively. Today's glucose level is 114. Today's hemoglobin, hematocrit, white count and platelet count are within normal limits. Renal ultrasound, there is mild increased echogenicity, bilateral renal parenchymal cortices suggestive of medical renal disease. ASSESSMENT: 1. Dizziness and near syncope. 2. Postural hypotension, rule out dysautonomia. 3. Rule out dehydration. 4. Chronic renal insufficiency. 5. Hyperlipidemia. RECOMMENDATIONS: I discussed the case with and the patient is receiving normal saline . Continue Crestor 20 mg once a day, subcutaneous heparin 5000 units every 8 hours. [facility] is on hold. I will review the echocardiac study performed today. Jose Velázquez MD
--- NOTE | 2018-12-24 20:27 | CARD ---
APPROVED REPORT Date of service: 12/24/2018 EXAM: Two-dimensional and M-mode echocardiogram with Doppler and color Doppler. INDICATION Syncope RISK FACTORS Hypertension Hyperlipidemia Diabetes 2D DIMENSIONS IVSd1.6 (0.7-1.1cm)LVDd4.0 (3.9-5.9cm) PWd1.3 (0.7-1.1cm)LA Daydhx30 (18-58mL) LVDs3.0 (2.5-4.0cm)FS (%) 25.8 % LVEF (%)51.3 (>50%)LVEF (Hooks's)66.04 % M-Mode DIMENSIONS Left Atrium (MM)3.60 (2.5-4.0cm)Aortic Root3.36 (2.2-3.7cm) Aortic Cusp Exc.2.10 (1.5-2.0cm) Mitral Valve MV E Hamnuqmh90.3cm/sMV A Kkeqhkqs13.4cm/sE/A ratio0.7 TDI Lateral E' Peak V5.77cm/sMedial E' Peak V3.77cm/sE/Lateral E'9.9 E/Medial E'15.2 Tricuspid Valve TR Peak [id number]/sTR Peak Gr.[id number] <Conclusion> normal size la,lv & ra rv. normal lv wall otion & systolic funciton with lvef of 65-70%. moderately severe lvh . lv diastolic dysfunction grade one. sclerotic trileaflet aortic valve. nromal mitral,tv & pv. mild tr with mildly elevated pulmonary systolic pressures of 36 mm of hg. no pericardial effusion. normal size aortic root & ivc.
[2018-12-25] MEDS ORDERED: Labetalol 25mg/5ml Syringe IVP STA ×2 (05:07→05:11)
[2018-12-25] MEDS ORDERED: Enalaprilat 2.5 MG/2 ML IV ONE (05:36)
[2018-12-25 06:25] LABS: BASO # 0.1 K/uL (0.0-0.2); EOS # 0.3 K/uL (0.0-0.7); EOS % 5.5 % (0.0-4.0); HEMOGLOBIN 10.7 g/dL (11.0-16.0); LYMPH # 1.8 K/uL (1.0-4.3); LYMPH % 35.7 % (20.0-40.0); MEAN CELL VOLUME 88.1 fL (81.0-99.0); MEAN CORPUSCULAR HEMOGLOBIN 28.7 pg (27.0-31.0); MEAN CORPUSCULAR HGB CONC 32.6 g/dL (33.0-37.0); MEAN PLATELET VOLUME 7.6 fL (7.2-11.7); MONO # 0.2 K/uL (0.0-0.8); MONO % 4.7 % (0.0-10.0); NEUT # 2.6 K/uL (1.8-7.0); NEUT % 53.1 % (50.0-75.0); RBC 3.74 Mil/uL (3.80-5.20); RED CELL DISTRIBUTION WIDTH 14.3 % (11.5-14.5); WHITE BLOOD COUNT 4.9 K/uL (4.8-10.8)
[2018-12-25 06:37] LABS: ALB/GLOB RATIO 1.2 (1.0-2.1); ALBUMIN 3.8 g/dL (3.5-5.0); CALCIUM 8.9 mg/dl (8.6-10.4)
[2018-12-25 08:28] VITALS: O2SAT 100
[2018-12-25] MEDS: (Novolog) Insulin Aspart, Recombinant 100 u/ml 10 ml vial SC SCH ×4 (08:36→17:09)
--- NOTE | 2018-12-25 09:30 | CP.PCM.PN ---
<Dipti Ivey V - Last Filed: 12/25/18 10:35> Objective - Vital Signs/Intake and Output Vital Signs (last 24 hours): Temp Pulse Resp BP Pulse Ox 98.1 F 74 15 136/52 L 100 12/25/18 04:00 12/25/18 08:04 12/25/18 08:04 12/25/18 08:04 12/25/18 08:04 Intake and Output: 12/25/18 12/25/18 06:59 18:59 Intake Total 1100 Output Total 1000 Balance 100 - Medications Medications: Current Medications Amlodipine Besylate (Norvasc) 5 mg PO DAILY [facility] Last Admin: 12/24/18 09:15 Dose: 5 mg Dextrose (Dextrose 50% Inj) 0 ml IVP .STAT PRN; Protocol PRN Reason: Hypoglycemia Protocol Dextrose (Glutose 15) 0 gm PO .ONCE PRN; Protocol PRN Reason: Hypoglycemia Protocol Dextrose (Dextrose 50% Inj) 0 ml IV STAT PRN; Protocol PRN Reason: Hypoglycemia Protocol Dextrose (Glutose 15) 0 gm PO ONCE PRN; Protocol PRN Reason: Hypoglycemia Protocol Famotidine (Pepcid) 20 mg PO DAILY [facility] Last Admin: 12/24/18 09:15 Dose: 20 mg Glucagon (Glucagen Diagnostic Kit) 0 mg IM .STAT PRN; Protocol PRN Reason: Hypoglycemia Protocol Glucagon (Glucagen Diagnostic Kit) 0 mg IM STAT PRN; Protocol PRN Reason: Hypoglycemia Protocol Heparin Sodium (Porcine) (Heparin) 5,000 units SC Q8 [facility] Last Admin: 12/25/18 07:00 Dose: 5,000 units Dextrose (Dextrose 5% In Water 1000 Ml) 1,000 mls @ 0 mls/hr IV .Q0M PRN; Protocol PRN Reason: Hypoglycemia Protocol Dextrose (Dextrose 5% In Water 1000 Ml) 1,000 mls @ 0 mls/hr IV .Q0M PRN; Protocol PRN Reason: Hypoglycemia Protocol Insulin Aspart (Novolog) 10 unit SC AC [facility] Last Admin: 12/25/18 08:38 Dose: Not Given Insulin Detemir (Levemir) 40 unit SC Q12 [facility] Last Admin: 12/24/18 22:45 Dose: Not Given Rosuvastatin Calcium (Crestor) 20 mg PO HS [facility] Last Admin: 12/24/18 21:35 Dose: 20 mg - Labs Labs: 12/25/18 06:22 12/25/18 06:22 - Constitutional Appears: Non-toxic, No Acute Distress - Head Exam Head Exam: NORMAL INSPECTION - Eye Exam Eye Exam: EOMI - ENT Exam ENT Exam: Mucous Membranes Moist - Respiratory Exam Respiratory Exam: Clear to Ausculation Bilateral, NORMAL BREATHING PATTERN. absent: Rales, Rhonchi, Wheezes - Cardiovascular Exam Cardiovascular Exam: REGULAR RHYTHM, +S1, +S2 - GI/Abdominal Exam GI & Abdominal Exam: Distended (obese habitus), Soft, Normal Bowel Sounds. absent: Firm, Guarding, Rigid, Tenderness, Rebound - Extremities Exam Extremities Exam: absent: Pedal Edema, Tenderness - Neurological Exam Neurological Exam: Alert, Awake, Oriented x3 - Psychiatric Exam Psychiatric exam: Normal Affect, Normal Mood - Skin Skin Exam: Dry, Intact, Normal Color, Warm Assessment and Plan (1) Hypertensive crisis Status: Acute (2) Orthostatic hypotension Status: Acute (3) Lipid disorder Status: Acute (4) Diabetes Status: Acute (5) Anxiety Status: Acute (6) Prophylactic measure Status: Acute Attending/Attestation - Attestation Notes (Text): Early this morning around 530am patient systolic blood pressure 10/30/1947 I spoke with the nighttime resident. The patient complaint was primarily anxiety he had given a dose of Vasotec 2.5 mg IV x1 hydralazine 25 mg once, and Xanax 0.5 mg p.o by nighttime resident. Her anxiety at the blood pressure seen if worsening as she is looking at the screening blood pressure when I asked him if he checked orthostatics he did not. Presently is about 10 AM patient status to see if there is still significant difference systolic resting versus systolic while standing. Discussed with nurse who will when she has been patient is more awake to check and orthostatics daughter present at bedside. Also to note blood p ressure was taking whether quite small her blood pressure cuff size 11 I did advise nighttime resident for further teaching to use a bigger blood pressure cuff and to instruct nursing to use a blood pressure cuff I did speak with her present daytime nurse then to check her blood pressure with a bigger cuff and to endorse to her colleagues. I have held her Norvasc given blood pressure is about 130s over 50s right now.. Patient seen and examined at bedside with daughter present. Patient is much relaxed. We went over the events of earlier this morning. Patient noted no headache no chest pain no blurry vision noted just overlying anxiety and unable to rest. We did explain to patient as well as daughter at bedside in terms of using a BP cuff upper lobe bigger given morbid obesity. We did advise did not look at the screen constantly for the will now allow the body to relax. We did advise blood pressure checks at least 2-3 times a day with a diary. Patient is not lightheaded or dizzy presently patient blood pressure about 121/51 patient is a lot longer orthostatic per discussion with nurse this morning. We will assess physical therapy today to see if patient is lightheaded in light of new blood pressure we did explain terms of echo findings of MRI as well as carotid Doppler. We will need to follow-up with cardiology to see what ideal antihypertensive therapy is for the patient. <Elysia Tomlin - Last Filed: 12/25/18 20:50> Subjective - Date & Time of Evaluation Date of Evaluation: 12/25/18 Time of Evaluation: 09:30 - Subjective Subjective: Progress Note for Hospitalist service Patient seen and examined at bedside. She states she felt very anxious earlier this morning when she was found to have high blood pressure with a smaller cuff. She states she did not have any headache, blurry vision, dizziness, chest pain when she had elevated blood pressures. Patient denies fevers, chills, headache, dizziness, chest pain, shortness of breath, abdominal pain, nausea, vomiting, diarrhea, constipation. Objective - Vital Signs/Intake and Output Vital Signs (last 24 hours): Temp Pulse Resp BP Pulse Ox 98.1 F 74 15 136/52 L 100 12/25/18 04:00 12/25/18 08:04 12/25/18 08:04 12/25/18 08:04 12/25/18 08:04 Intake and Output: 12/25/18 12/25/18 06:59 18:59 Intake Total 1100 Output Total 1000 Balance 100 - Medications Medications: Current Medications Amlodipine Besylate (Norvasc) 5 mg PO DAILY [facility] Last Admin: 12/24/18 09:15 Dose: 5 mg Dextrose (Dextrose 50% Inj) 0 ml IVP .STAT PRN; Protocol PRN Reason: Hypoglycemia Protocol Dextrose (Glutose 15) 0 gm PO .ONCE PRN; Protocol PRN Reason: Hypoglycemia Protocol Dextrose (Dextrose 50% Inj) 0 ml IV STAT PRN; Protocol PRN Reason: Hypoglycemia Protocol Dextrose (Glutose 15) 0 gm PO ONCE PRN; Protocol PRN Reason: Hypoglycemia Protocol Famotidine (Pepcid) 20 mg PO DAILY [facility] Last Admin: 12/24/18 09:15 Dose: 20 mg Glucagon (Glucagen Diagnostic Kit) 0 mg IM .STAT PRN; Protocol PRN Reason: Hypoglycemia Protocol Glucagon (Glucagen Diagnostic Kit) 0 mg IM STAT PRN; Protocol PRN Reason: Hypoglycemia Protocol Heparin Sodium (Porcine) (Heparin) 5,000 units SC Q8 [facility] Last Admin: 12/25/18 07:00 Dose: 5,000 units Dextrose (Dextrose 5% In Water 1000 Ml) 1,000 mls @ 0 mls/hr IV .Q0M PRN; Protocol PRN Reason: Hypoglycemia Protocol Dextrose (Dextrose 5% In Water 1000 Ml) 1,000 mls @ 0 mls/hr IV .Q0M PRN; Protocol PRN Reason: Hypoglycemia Protocol Insulin Aspart (Novolog) 10 unit SC AC [facility] Last Admin: 12/25/18 08:38 Dose: Not Given Insulin Detemir (Levemir) 40 unit SC Q12 [facility] Last Admin: 12/24/18 22:45 Dose: Not Given Rosuvastatin Calcium (Crestor) 20 mg PO HS [facility] Last Admin: 12/24/18 21:35 Dose: 20 mg - Labs Labs: 12/25/18 06:22 12/25/18 06:22 - Constitutional Appears: Non-toxic, No Acute Distress - Head Exam Head Exam: ATRAUMATIC, NORMOCEPHALIC - Eye Exam Eye Exam: EOMI, PERRL - ENT Exam ENT Exam: Mucous Membranes Moist - Neck Exam Neck Exam: Full ROM. absent: Tenderness - Respiratory Exam Respiratory Exam: Clear to Ausculation Bilateral, NORMAL BREATHING PATTERN - Cardiovascular Exam Cardiovascular Exam: REGULAR RHYTHM, +S1, +S2 - GI/Abdominal Exam GI & Abdominal Exam: Distended, Soft, Normal Bowel Sounds - Extremities Exam Extremities Exam: absent: Calf Tenderness, Pedal Edema, Tenderness - Neurological Exam Neurological Exam: Alert, Awake, Oriented x3 - Psychiatric Exam Psychiatric exam: Normal Affect, Normal Mood - Skin Skin Exam: Dry, Intact, Warm Assessment and Plan - Assessment and Plan (Free Text) Assessment: 68 year old female with history of hypertension, diabetes, hyperlipidemia who presents with near syncopal episode after change in blood pressure medication. Plan: Near syncopal episode CT head: no acute intracranial abnormality. chronic microvascular ischemic changes. punctate left basal gangliar infarct. CXR: no acute disease D-dimer <200 ECHO Moderate to severe LVH carotid dopplers within normal limits. Trop x3 neg ABRAHAM: CK 235 CKMB 2.07 Trop 0.0220 Patient no longer orthostatic. EKG: SR with flipped T waves in lead 1, V5, V6 Brain MRI: mild white matter changes Cardiology Dr. Velázquez consulted, help appreciated Recommended avoiding RINKU inhibitiors, hypertension likely not postural in cherelle ure. Renal failure, likely chronic BUN 41 Cr 2.4 Continue to monitor renal US: increased echogenicity consistent with renal disease. Anemia, mild H/H 10.7/32.9 Continue to monitor for signs of bleeding Iron studies within normal limits History of hypertension Norvasc 5mg PO daily Repeat Norvasc 5mg PO x1 given prior to discharge. Overnight, patient had a smaller blood pressure cuff on and had blood pressure r eading of systolic 260. She was given Hydralazine 25mg PO, Vasotec IV and Xanax. On exam, patient was sleepy with systolic BP in 120s. History of DM, uncontrolled Patient states she has uncontrolled blood sugar levels when she was in [place] but has been taking her insulin as prescribed after she arrived to the last month Levemir 40 unit SC Q12 Novolog 10 unit SC AC A1c 7.9 Patient counseled on the importance of following up with ophthalmology and podiatry. Patient was also counseling on diet. Hypoglycemic protocol History of hyperlipidemia Crestor 10mg PO HS -renally dosed Lipid panel TG 246 Cholesterol 230 LDL 114 HDL 40 Counseled on the importance of changing diet. Fish oil supplement Sleep apnea, Pulmonary Dr. Christy consulted Will need outpatient sleep studies. Prophylaxis: Heparin 5000 units SC Q8 Heart healthy diet Pepcid 20mg PO Case discussed with Dr. Uche Tomlin, PGY1
[2018-12-25] MEDS: Insulin Detemir 100 units/ml Vial (Levemir) SC SCH (11:19)
--- NOTE | 2018-12-25 13:31 | CP.PCM.CON ---
History of Present Illness - History of Present Illness History of Present Illness: Patient is a 68 y/o female with a PMH of HTN, DM, HLD who presented to the ER on 12/22 for a syncopal episode. Earlier that morning she felt faint and fell to the floor in her kitchen but did not lose consciousness. For three days prior to presentation she states she felt dizzy, weak and light-headed. These changes corresponded with removal of Losartan for worsening renal function and replacement with Cardura instead for HTN. She was also recently started on Lasix for peripheral edema. In addition, she reports that she snores at night, awakens frequently throughout the night, and feels increasingly fatigued during the day. Pulm consulted for evaluation of sleep apnea. Patient seen and examined at bedside. Reports to feel anxious but otherwise no complaints. She denies cough and dyspnea. Physical Exam Gen: AAOx3 Cardio: RRR, no murmur Pulm: CTA b/l Abd: Soft, non-distended A/P - Patient is stable and should follow up outpatient for workup of sleep apnea Past Patient History - Past Social History Smoking Status: Former Smoker - CARDIAC Hx Hypercholesterolemia: Yes Hx Hypertension: Yes - RENAL Hx Chronic Kidney Disease: Yes - ENDOCRINE/METABOLIC Hx Diabetes Mellitus Type 2: Yes - MUSCULOSKELETAL/RHEUMATOLOGICAL Hx Falls: No - PSYCHIATRIC Hx Substance Use: No - SURGICAL HISTORY Hx Surgeries: Yes Hx Section: Yes - ANESTHESIA Hx Anesthesia: Yes Hx Anesthesia Reactions: No Meds Allergies/Adverse Reactions: Allergies Allergy/AdvReac Type Severity Reaction Status Date / Time No Known Allergies Allergy Verified 06/25/16 10:47 - Medications Medications: Current Medications Amlodipine Besylate (Norvasc) 5 mg PO DAILY [facility] Last Admin: 12/24/18 09:15 Dose: 5 mg Dextrose (Dextrose 50% Inj) 0 ml IVP .STAT PRN; Protocol PRN Reason: Hypoglycemia Protocol Dextrose (Glutose 15) 0 gm PO .ONCE PRN; Protocol PRN Reason: Hypoglycemia Protocol Dextrose (Dextrose 50% Inj) 0 ml IV STAT PRN; Protocol PRN Reason: Hypoglycemia Protocol Dextrose (Glutose 15) 0 gm PO ONCE PRN; Protocol PRN Reason: Hypoglycemia Protocol Famotidine (Pepcid) 20 mg PO DAILY [facility] Last Admin: 12/25/18 11:19 Dose: 20 mg Glucagon (Glucagen Diagnostic Kit) 0 mg IM .STAT PRN; Protocol PRN Reason: Hypoglycemia Protocol Glucagon (Glucagen Diagnostic Kit) 0 mg IM STAT PRN; Protocol PRN Reason: Hypoglycemia Protocol Heparin Sodium (Porcine) (Heparin) 5,000 units SC Q8 [facility] Last Admin: 12/25/18 07:00 Dose: 5,000 units Dextrose (Dextrose 5% In Water 1000 Ml) 1,000 mls @ 0 mls/hr IV .Q0M PRN; Prot ocol PRN Reason: Hypoglycemia Protocol Dextrose (Dextrose 5% In Water 1000 Ml) 1,000 mls @ 0 mls/hr IV .Q0M PRN; Protocol PRN Reason: Hypoglycemia Protocol Insulin Aspart (Novolog) 10 unit SC AC [facility] Last Admin: 12/25/18 12:44 Dose: Not Given Insulin Detemir (Levemir) 40 unit SC Q12 [facility] Last Admin: 12/25/18 11:19 Dose: 40 units Rosuvastatin Calcium (Crestor) 20 mg PO HS [facility] Last Admin: 12/24/18 21:35 Dose: 20 mg Results - Vital Signs Recent Vital Signs: Last Vital Signs Temp 98.2 F 12/25/18 08:00 Pulse 90 12/25/18 10:05 Resp 18 12/25/18 10:05 BP 121/55 L 12/25/18 10:05 Pulse Ox 100 12/25/18 10:05 - Labs Result Diagrams: 12/25/18 06:22 12/25/18 06:22 Labs: Laboratory Results - last 24 hr 12/25/18 12/25/18 12/25/18 06:22 06:22 06:22 WBC 4.9 RBC 3.74 L Hgb 10.7 L Hct 32.9 L MCV 88.1 MCH 28.7 MCHC 32.6 L RDW 14.3 Plt Count 225 MPV 7.6 Neut % (Auto) 53.1 Lymph % (Auto) 35.7 [place] % (Auto) 4.7 Eos % (Auto) 5.5 H Baso % (Auto) 1.0 Neut # (Auto) 2.6 Lymph # (Auto) 1.8 [place] # (Auto) 0.2 Eos # (Auto) 0.3 Baso # (Auto) 0.1 Sodium 138 Potassium 4.6 Chloride 109 H Carbon Dioxide 24 Anion Gap 9 L BUN 41 H Creatinine 2.4 H Est GFR ( Amer) 24 Est GFR (Non-Af Amer) 20 Random Glucose 154 H D Calcium 8.9 Phosphorus 3.6 Magnesium 2.1 Total Bilirubin 0.3 AST 22 ALT 20 Alkaline Phosphatase 63 Total Protein 7.1 Albumin 3.8 Globulin 3.3 Albumin/Globulin Ratio 1.2
[2018-12-25 18:26] VITALS: PULSE 85
[2018-12-25 18:41] VITALS: BP 163/84; RESP 13; TEMP 98.6
--- NOTE | 2018-12-25 20:09 | CP.PCM.DIS ---
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 Physician Instructions: Reason For Exam: spiritual Time Spent in preparation of Discharge (in minutes): 40 Hospital Course - Lab Results Lab Results: Micro Results 12/23/18 05:26 Nose MRSA Culture (Admit) - Final MRSA NOT DETECTED Most Recent Lab Values WBC 4.9 K/uL (4.8-10.8) 12/25/18 06:22 RBC 3.74 Mil/uL (3.80-5.20) L 12/25/18 06:22 Hgb 10.7 g/dL (11.0-16.0) L 12/25/18 06:22 Hct 32.9 % (34.0-47.0) L 12/25/18 06:22 MCV 88.1 fL (81.0-99.0) 12/25/18 06:22 MCH 28.7 pg (27.0-31.0) 12/25/18 06:22 MCHC 32.6 g/dL (33.0-37.0) L 12/25/18 06:22 RDW 14.3 % (11.5-14.5) 12/25/18 06:22 Plt Count 225 K/uL (130-400) 12/25/18 06:22 MPV 7.6 fL (7.2-11.7) 12/25/18 06:22 Neut % (Auto) 53.1 % (50.0-75.0) 12/25/18 06:22 Lymph % (Auto) 35.7 % (20.0-40.0) 12/25/18 06:22 [place] % (Auto) 4.7 % (0.0-10.0) 12/25/18 06:22 Eos % (Auto) 5.5 % (0.0-4.0) H 12/25/18 06:22 Baso % (Auto) 1.0 % (0.0-2.0) 12/25/18 06:22 Neut # (Auto) 2.6 K/uL (1.8-7.0) 12/25/18 06:22 Lymph # (Auto) 1.8 K/uL (1.0-4.3) 12/25/18 06:22 [place] # (Auto) 0.2 K/uL (0.0-0.8) 12/25/18 06:22 Eos # (Auto) 0.3 K/uL (0.0-0.7) 12/25/18 06:22 Baso # (Auto) 0.1 K/uL (0.0-0.2) 12/25/18 06:22 Retic Count 1.4 % (0.5-1.5) 12/24/18 06:25 D-Dimer, Quantitative < 200 ng/mlDDU (0-243) 12/23/18 10:04 Puncture Site Lb 12/24/18 11:44 pCO2 42 mm/Hg (35-45) 12/24/18 11:44 pO2 76 mm/Hg (80-100) L 12/24/18 11:44 HCO3 23.5 mmol/L (21-28) 12/24/18 11:44 ABG pH 7.36 (7.35-7.45) 12/24/18 11:44 ABG Total CO2 25.0 mmol/L (22-28) 12/24/18 11:44 ABG O2 Saturation 96.0 % (95-98) 12/24/18 11:44 ABG Base Excess -1.8 mmol/L (-2.0-3.0) 12/24/18 11:44 ABG Hemoglobin 12.6 g/dL (11.7-17.4) 12/24/18 11:44 ABG Carboxyhemoglobin 1.2 % (0.5-1.5) 12/24/18 11:44 POC ABG HHb (Measured) 3.9 % (0.0-5.0) 12/24/18 11:44 ABG Methemoglobin 0.5 % (0.0-3.0) 12/24/18 11:44 Aron Test Na 12/24/18 11:44 A-a O2 Difference 21.0 mm/Hg 12/24/18 11:44 Respiratory Index 0.3 12/24/18 11:44 Hgb O2 Saturation 94.4 % (95.0-98.0) L 12/24/18 11:44 FiO2 21.0 % 12/24/18 11:44 Sodium 138 mmol/L (132-148) 12/25/18 06:22 Potassium 4.6 mmol/L (3.6-5.2) 12/25/18 06:22 Chloride 109 mmol/L (98-107) H 12/25/18 06:22 Carbon Dioxide 24 mmol/L (22-30) 12/25/18 06:22 Anion Gap 9 (10-20) L 12/25/18 06:22 BUN 41 mg/dL (7-17) H 12/25/18 06:22 Creatinine 2.4 mg/dL (0.7-1.2) H 12/25/18 06:22 Est GFR ( Amer) 24 12/25/18 06:22 Est GFR (Non-Af Amer) 20 12/25/18 06:22 POC Glucose (mg/dL) 109 mg/dL (65-110) 12/24/18 07:41 Random Glucose 154 mg/dL (65-105) H D 12/25/18 06:22 Hemoglobin A1c 7.9 % (4.2-6.5) H 12/23/18 05:26 Calcium 8.9 mg/dl (8.6-10.4) 12/25/18 06:22 Phosphorus 3.6 mg/dL (2.5-4.5) 12/25/18 06:22 Magnesium 2.1 mg/dL (1.6-2.3) 12/25/18 06:22 Iron 64 ug/dL (37-170) 12/24/18 06:25 TIBC 283 ug/dL (250-450) 12/24/18 06:25 % Saturation 20 (20-55) 12/24/18 06:25 Ferritin 159.0 ng/mL 12/24/18 06:25 Total Bilirubin 0.3 mg/dL (0.2-1.3) 12/25/18 06:22 AST 22 U/L (14-36) 12/25/18 06:22 ALT 20 U/L (9-52) 12/25/18 06:22 Alkaline Phosphatase 63 U/L (38-126) 12/25/18 06:22 Total Creatine Kinase 208 U/L (30-135) H 12/23/18 10:04 CK-MB (Mass) 1.85 ng/mL (0.0-3.38) 12/23/18 10:04 Troponin I 0.0210 ng/mL (0.00-0.120) 12/23/18 10:04 NT-Pro-B Natriuret Pep 103 pg/mL (0-900) 12/22/18 18:51 Total Protein 7.1 g/dL (6.3-8.3) 12/25/18 06:22 Albumin 3.8 g/dL (3.5-5.0) 12/25/18 06:22 Globulin 3.3 gm/dL (2.2-3.9) 12/25/18 06:22 Albumin/Globulin Ratio 1.2 (1.0-2.1) 12/25/18 06:22 Triglycerides 246 mg/dL (0-149) H 12/24/18 06:25 Cholesterol 230 mg/dL (0-199) H 12/24/18 06:25 LDL Cholesterol Direct 114 mg/dL (0-129) 12/24/18 06:25 HDL Cholesterol 40 mg/dL (30-70) 12/24/18 06:25 Urine Color Yellow (YELLOW) 12/22/18 20:54 Urine Clarity Hazy (Clear) 12/22/18 20:54 Urine pH 5.0 (5.0-8.0) 12/22/18 20:54 Ur Specific [place] 1.009 (1.003-1.030) 12/22/18 20:54 Urine Protein 3+ mg/dL (NEGATIVE) H 12/22/18 20:54 Urine Glucose (UA) Normal mg/dL (Normal) 12/22/18 20:54 Urine Ketones Negative mg/dL (NEGATIVE) 12/22/18 20:54 Urine Blood Negative (NEGATIVE) 12/22/18 20:54 Urine Nitrate Negative (NEGATIVE) 12/22/18 20:54 Urine Bilirubin Negative (NEGATIVE) 12/22/18 20:54 Urine Urobilinogen Normal mg/dL (0.2-1.0) 12/22/18 20:54 Ur Leukocyte Esterase Neg Carolyn/uL (Negative) 12/22/18 20:54 Urine WBC (Auto) 6 /hpf (0-5) H 12/22/18 20:54 Urine RBC (Auto) < 1 /hpf (0-3) 12/22/18 20:54 Ur Squamous Epith Cells 1 /hpf (0-5) 12/22/18 20:54 Urine Bacteria Many (<OCC) H 12/22/18 20:54 - Hospital Course Hospital Course: On admission: Patient is a 68 year old female with medical history of HTN, DM who presents with syncopal episode. Patient states for past 3 days she has been feeling increasingly dizzy and weak. Patient notes that symptoms roughly correspond with a medication change - patient was taken off of Losartan for worsening renal function and placed on Cardura for blood pressure. Patient believes that once she started taking Cardura she noticed herself having episodes of lightheadedness, feeling faint. This morning, patient was in the kitchen and noticed herself beginning to feel faint. She reports she tried to remain standing, but ended up falling to the floor - not sure if hit her head directly, did not lose consciousness. Patient also notes that she was recently started on Lasix as well for peripheral edema. She reports additionally that she snores at night, awakens frequently, and has been increasingly fatigued during the day and sleeping during the day over the past year. Patient was planned to go for sleep study this week prior to hospitalization. Hospital course: Patient was admitted for near syncopal episode after she experienced dizziness after recent addition of anti-hypertensive. Patient had serial cardiac enzymes which were negative, however EKG showed flipped T waves in Lead 1, V5, V6. Cardiology Dr. Velázquez consulted, help appreciated. ECHO revealed patient had moderate to severe LVH consistent with history of hypertension. Patient was found to have elevated Creatinine. Renal ultrasound revealed echogenicity consistent with renal disease. Iron studies ordered after patient was found to be mildly anemic were within normal limits. During her hospitalization, patient was found to have labile blood pressure. Patient was discharged with Norvasc 10mg PO. Patient was found to have A1c 7.9, treated with Levemir and Novolog. Patient was found have abnormal lipid panel, started on renal dose of Crestor. Discussion with patient regarding the importance of changing diet. Patient was provided with script for outpatient sleep studies. Upon discharge, patient was walking around without any complaints of dizziness, not found to be orthostatic without any syncopal episodes. Imaging: CT head: no acute intracranial abnormality. chronic microvascular ischemic changes. punctate left basal gangliar infarct. CXR: no acute disease ECHO Moderate to severe LVH Carotid dopplers within normal limits. Brain MRI: mild white matter changes Renal US: increased echogenicity consistent with renal disease. Discharge instructions: Please follow up with your Residential Leasing Manager on Sunday as scheduled. Keep a blood pressure diary measuring your blood pressure in the morning and at night. You have been provided with a prescription from Dr. Christy for a sleep study. Please call the phone number on the script to make an appointment. Please follow up with your medical affairs director within 1 to 2 weeks for further management of your diabetes. Please modify your diet as discussed earlier by decreasing amount of animal based food, and increasing amount of vegetables and plant based proteins like beans and lentils in your diet. Please return to the Emergency Department if you feel faint, faint, experience dizziness, chest pain or shortness of breath. Prescriptions provided: Aspirin 81mg by mouth once daily Lipitor 20mg by mouth once daily Norvasc 10mg by mouth once daily Discharge Exam - Head Exam Head Exam: ATRAUMATIC, NORMOCEPHALIC - Eye Exam Eye Exam: EOMI, PERRL - ENT Exam ENT Exam: Mucous Membranes Moist - Neck Exam Neck exam: Full Rom - Respiratory Exam Respiratory Exam: Clear to PA & Lateral, NORMAL BREATHING PATTERN. absent: Rales, Rhonchi, Wheezes, Respiratory Distress, Stridor - Cardiovascular Exam Cardiovascular Exam: REGULAR RHYTHM, +S1, +S2. absent: Gallop, Rubs, Systolic Murmur - GI/Abdominal Exam GI & Abdominal Exam: Normal Bowel Sounds, Soft. absent: Distended, Guarding, Mass, Rebound, Rigid, Tenderness - Extremities Exam Extremities exam: pedal pulses present Additional comments: no calf tenderness, no pedal edema - Back Exam Back exam: absent: CVA tenderness (L), CVA tenderness (R) - Neurological Exam Neurological exam: Alert, CN II-XII Intact, Oriented x3 - Psychiatric Exam Psychiatric exam: Normal Affect, Normal Mood - Skin Skin Exam: Dry, Intact, Warm Discharge Plan - Discharge Medications Prescriptions: RX: amLODIPine [Norvasc] 10 mg PO DAILY #30 tab Aspirin [Aspirin EC] 81 mg PO DAILY #30 tablet. RX: Atorvastatin [Lipitor] 20 mg PO DAILY #30 tab - Follow Up Plan Condition: STABLE Disposition: HOME/ ROUTINE Instructions: Heart Healthy Diet, Syncope (Fainting) (DC), Near Fainting (DC) Additional Instructions: Please follow up with your Residential Leasing Manager on Sunday as scheduled. Keep a blood pressure diary measuring your blood pressure in the morning and at night. You have been provided with a prescription from Dr. Christy for a sleep study. Please call the phone number on the script to make an appointment. Please follow up wi th your medical affairs director within 1 to 2 weeks for further management of your diabetes. Please modify your diet as discussed earlier by decreasing amount of animal based food, and increasing amount of vegetables and plant based proteins like beans and lentils in your diet. Please return to the Emergency Department if you feel faint, faint, experience dizziness, chest pain or shortness of breath. Prescriptions provided: Aspirin 81mg by mouth once daily Lipitor 20mg by mouth once daily Norvasc 10mg by mouth once daily <Dipti Ivey V - Last Filed: 12/25/18 23:37> Provider - Provider Date of Admission: 12/23/18 21:25 Attending physician: Dipti Ivey DO Consults: 12/23/18 11:03 Cardiology Consult Routine Comment: Consulting Provider: Jose Velázquez Consulting Physician: Jose Velázquez Reason for Consult: abnormal ekg, nearsynope, liable bp 12/24/18 09:24 Pulmonology Consult Routine Comment: Consulting Provider: Kendell Christy Consulting Physician: Kendell Christy Reason for Consult: eval sleep apnea 12/25/18 10:18 Pastoral Care Referral Routine 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 Patient walking around no dizziness no lightheadedness. Discussed case with cardiology this afternoon. Initially recommended for clonidine however and insight fair postural hypotension discussed. Neurovascular patient. Patient has follow-up with her vice president medical affairs next Sunday at [facility]. Patient advised to make a blood pressure diary to check at least once in the morning once the evening advised for appropriate pressure cuff. Obese habitus, I have personally shown her in terms of how her arms to rest at the level of the heart as well as when she was a pharmacy to get her blood pressure checked patient discharged on the Norvasc 10 mg once a day at least 30 pills to be adjusted by her vice president medical affairs on follow-up visits. With blood pressure diary since (2) Orthostatic hypotension Status: Resolved Comment: Likely secondary to Cardura. Cardura held during hospitalization. Patient orthostatics improved. Patient is no longer orthostatic. Patient walking around doing well day of discharge no lightheadedness and dizziness (3) Lipid disorder Status: Chronic Comment: Lipid panel taken during hospitalization. Patient noted has a [place] diet which is usually high in fat. Statin adjusted given creatinine clearance. Lipitor adjusted on discharge. Patient is aware that she needs to make serious dietary and exercise modification to preserve her overall health. (4) Diabetes Status: Chronic Comment: Hemoglobin A1c 7.9. Patient to continue insulin regimen. Patient strongly advised to maintain dietary and exercise modification. Patient advised to lose weight. Patient understands that because of her long-standing diabetes it is possible this risk but not limited to blindness, heart attack, renal disease. Patient patient recommended to follow-up for annual screening exams for diabetes including podiatry and ophthalmology as well as maintain diet restrictions to home with controlled diabetes she is aware that diabetes in the long-standing implications on her health. (5) Anxiety Status: Resolved (6) Hypertension Status: Chronic Comment: Blood pressure stable day of discharge patient is no longer orthostatic patient discharged on Norvasc. Discharge instructions note in detail and under hypertensive crisis. (7) Morbid obesity Status: Acute Comment: Instructed in terms of aggressive diet and exercise modifications given the long-standing implications of obesity on her health including associated risk factors which are hypertension, diabetes, lipid disorder she reports that she is under a ketogenic diet under the advisement of her outpatient vice president medical affairs I did indicate to her that Mediterranean diet or vegetarian diet w ould be more appropriate for her given that it will reduce the risk of animal protein as well as his overall health in light of her potential risk for heart disease (8) Sleep apnea Status: Suspected Comment: Patient was seen and evaluated by pulmonology. Patient recommended for outpatient sleep study. Patient is also aware of the implication that she does have sleep apnea is a risk factor as well for heart attack and stroke. (9) Chronic renal disease Status: Chronic Comment: Patient to follow-up with outpatient vice president medical affairs on next Sunday. Patient complete a renal ultrasound and echocardiogram during hospitalization. Patient's creatinine is 2.4 on discharge. (10) Prophylactic measure Status: Acute Comment: Discharge instructions discussed with both daughter and patient at bedside. Questions answered at time of discharge. Hospital Course - Lab Results Lab Results: Micro Results 12/23/18 05:26 Nose MRSA Culture (Admit) - Final MRSA NOT DETECTED Most Recent Lab Values WBC 4.9 K/uL (4.8-10.8) 12/25/18 06:22 RBC 3.74 Mil/uL (3.80-5.20) L 12/25/18 06:22 Hgb 10.7 g/dL (11.0-16.0) L 12/25/18 06:22 Hct 32.9 % (34.0-47.0) L 12/25/18 06:22 MCV 88.1 fL (81.0-99.0) 12/25/18 06:22 MCH 28.7 pg (27.0-31.0) 12/25/18 06:22 MCHC 32.6 g/dL (33.0-37.0) L 12/25/18 06:22 RDW 14.3 % (11.5-14.5) 12/25/18 06:22 Plt Count 225 K/uL (130-400) 12/25/18 06:22 MPV 7.6 fL (7.2-11.7) 12/25/18 06:22 Neut % (Auto) 53.1 % (50.0-75.0) 12/25/18 06:22 Lymph % (Auto) 35.7 % (20.0-40.0) 12/25/18 06:22 [place] % (Auto) 4.7 % (0.0-10.0) 12/25/18 06:22 Eos % (Auto) 5.5 % (0.0-4.0) H 12/25/18 06:22 Baso % (Auto) 1.0 % (0.0-2.0) 12/25/18 06:22 Neut # (Auto) 2.6 K/uL (1.8-7.0) 12/25/18 06:22 Lymph # (Auto) 1.8 K/uL (1.0-4.3) 12/25/18 06:22 [place] # (Auto) 0.2 K/uL (0.0-0.8) 12/25/18 06:22 Eos # (Auto) 0.3 K/uL (0.0-0.7) 12/25/18 06:22 Baso # (Auto) 0.1 K/uL (0.0-0.2) 12/25/18 06:22 Retic Count 1.4 % (0.5-1.5) 12/24/18 06:25 D-Dimer, Quantitative < 200 ng/mlDDU (0-243) 12/23/18 10:04 Puncture Site Lb 12/24/18 11:44 pCO2 42 mm/Hg (35-45) 12/24/18 11:44 pO2 76 mm/Hg (80-100) L 12/24/18 11:44 HCO3 23.5 mmol/L (21-28) 12/24/18 11:44 ABG pH 7.36 (7.35-7.45) 12/24/18 11:44 ABG Total CO2 25.0 mmol/L (22-28) 12/24/18 11:44 ABG O2 Saturation 96.0 % (95-98) 12/24/18 11:44 ABG Base Excess -1.8 mmol/L (-2.0-3.0) 12/24/18 11:44 ABG Hemoglobin 12.6 g/dL (11.7-17.4) 12/24/18 11:44 ABG Carboxyhemoglobin 1.2 % (0.5-1.5) 12/24/18 11:44 POC ABG HHb (Measured) 3.9 % (0.0-5.0) 12/24/18 11:44 ABG Methemoglobin 0.5 % (0.0-3.0) 12/24/18 11:44 Aron Test Na 12/24/18 11:44 A-a O2 Difference 21.0 mm/Hg 12/24/18 11:44 Respiratory Index 0.3 12/24/18 11:44 Hgb O2 Saturation 94.4 % (95.0-98.0) L 12/24/18 11:44 FiO2 21.0 % 12/24/18 11:44 Sodium 138 mmol/L (132-148) 12/25/18 06:22 Potassium 4.6 mmol/L (3.6-5.2) 12/25/18 06:22 Chloride 109 mmol/L (98-107) H 12/25/18 06:22 Carbon Dioxide 24 mmol/L (22-30) 12/25/18 06:22 Anion Gap 9 (10-20) L 12/25/18 06:22 BUN 41 mg/dL (7-17) H 12/25/18 06:22 Creatinine 2.4 mg/dL (0.7-1.2) H 12/25/18 06:22 Est GFR ( Amer) 24 12/25/18 06:22 Est GFR (Non-Af Amer) 20 12/25/18 06:22 POC Glucose (mg/dL) 109 mg/dL (65-110) 12/24/18 07:41 Random Glucose 154 mg/dL (65-105) H D 12/25/18 06:22 Hemoglobin A1c 7.9 % (4.2-6.5) H 12/23/18 05:26 Calcium 8.9 mg/dl (8.6-10.4) 12/25/18 06:22 Phosphorus 3.6 mg/dL (2.5-4.5) 12/25/18 06:22 Magnesium 2.1 mg/dL (1.6-2.3) 12/25/18 06:22 Iron 64 ug/dL (37-170) 12/24/18 06:25 TIBC 283 ug/dL (250-450) 12/24/18 06:25 % Saturation 20 (20-55) 12/24/18 06:25 Ferritin 159.0 ng/mL 12/24/18 06:25 Total Bilirubin 0.3 mg/dL (0.2-1.3) 12/25/18 06:22 AST 22 U/L (14-36) 12/25/18 06:22 ALT 20 U/L (9-52) 12/25/18 06:22 Alkaline Phosphatase 63 U/L (38-126) 12/25/18 06:22 Total Creatine Kinase 208 U/L (30-135) H 12/23/18 10:04 CK-MB (Mass) 1.85 ng/mL (0.0-3.38) 12/23/18 10:04 Troponin I 0.0210 ng/mL (0.00-0.120) 12/23/18 10:04 NT-Pro-B Natriuret Pep 103 pg/mL (0-900) 12/22/18 18:51 Total Protein 7.1 g/dL (6.3-8.3) 12/25/18 06:22 Albumin 3.8 g/dL (3.5-5.0) 12/25/18 06:22 Globulin 3.3 gm/dL (2.2-3.9) 12/25/18 06:22 Albumin/Globulin Ratio 1.2 (1.0-2.1) 12/25/18 06:22 Triglycerides 246 mg/dL (0-149) H 12/24/18 06:25 Cholesterol 230 mg/dL (0-199) H 12/24/18 06:25 LDL Cholesterol Direct 114 mg/dL (0-129) 12/24/18 06:25 HDL Cholesterol 40 mg/dL (30-70) 12/24/18 06:25 Urine Color Yellow (YELLOW) 12/22/18 20:54 Urine Clarity Hazy (Clear) 12/22/18 20:54 Urine pH 5.0 (5.0-8.0) 12/22/18 20:54 Ur Specific [place] 1.009 (1.003-1.030) 12/22/18 20:54 Urine Protein 3+ mg/dL (NEGATIVE) H 12/22/18 20:54 Urine Glucose (UA) Normal mg/dL (Normal) 12/22/18 20:54 Urine Ketones Negative mg/dL (NEGATIVE) 12/22/18 20:54 Urine Blood Negative (NEGATIVE) 12/22/18 20:54 Urine Nitrate Negative (NEGATIVE) 12/22/18 20:54 Urine Bilirubin Negative (NEGATIVE) 12/22/18 20:54 Urine Urobilinogen Normal mg/dL (0.2-1.0) 12/22/18 20:54 Ur Leukocyte Esterase Neg Carolyn/uL (Negative) 12/22/18 20:54 Urine WBC (Auto) 6 /hpf (0-5) H 12/22/18 20:54 Urine RBC (Auto) < 1 /hpf (0-3) 12/22/18 20:54 Ur Squamous Epith Cells 1 /hpf (0-5) 12/22/18 20:54 Urine Bacteria Many (<OCC) H 12/22/18 20:54 Attending/Attestation - Attestation I have personally seen and examined this patient.: Yes I have fully participated in the care of the patient.: Yes I have reviewed all pertinent clinical information, including history, physical exam and plan: Yes Notes (Text): Patient seen, examined, case discussed with medical file clerk. Patient reevaluated in the afternoon. Patient reported doing quite well with daughter at bedside patient noted no lightheadedness type dizziness will be walked around the unit. Case discussed with cardiology That blood pressure has stabilized throughout the day. Patient is no longer orthostatic. Patient be discharged on Norvasc Norvasc. Patient follow-up with outpatient vice president medical affairs next Sunday. Patient advised to make a blood pressure diary and record at least 2-3 times a day. Patient instructed but not limited to diet and exercise modifications to reduce her risk for heart disease given that she has extreme risk factors including morbid obesity hypertension lipid disorder and diabetes. Patient advised side effects of Norvasc to look out for including but not limited to worsening leg edema flushing which she does not presently have. Discharge instructions discussed with patient and daughter at bedside. This is a summary of patient's hospitalization please refer to EMR for full detail record thank you
--- NOTE | 2018-12-25 22:20 | PN ---
DATE: 12/25/2018 FOLLOWUP SUBJECTIVE: The patient denies any dizziness. She did ambulate in ICU. No chest pain. PHYSICAL EXAMINATION: VITAL SIGNS: Blood pressure 150/70, heart rate 64, temperature 98.2, respirations 16. HEENT: Normocephalic. CHEST: Clear. HEART: S1 and S2, regular. EXTREMITIES: Trace leg edema. LABORATORY DATA: Today's BUN and creatinine are 41 and 2.4 respectively, glucose 154. Today's hemoglobin and hematocrit are 10.7 and 32.9. White count and platelet count are within normal limits. Brain MRI: No evidence of acute intracranial hemorrhage or infarct, mild chronic white matter ischemic changes. ASSESSMENT: 1. Dizziness upon admission, most likely postural hypotension related to recent Cardura prescription. 2. Chronic renal insufficiency. 3. Hyperlipidemia. 4. Morbid obesity. RECOMMENDATIONS: Case was discussed with the medical team including Dr. Ivey. The patient can be started on Norvasc 10 mg orally daily and maintained on Crestor 10 mg once a day. Jose Velázquez MD
--- NOTE | 2018-12-26 21:33 | VASCLAB ---
Date of service: 12/23/2018 PROCEDURE: Carotid Duplex Exam. HISTORY: syncope COMPARISON: None available. TECHNIQUE: Grayscale and duplex Doppler evaluation of the cervical carotid and vertebral arteries were performed. The common carotid, carotid bifurcations and cervical Internal Carotid Artery (ICA) and proximal External Carotid Artery (ECA) were evaluated. The vertebral arteries were evaluated for gross patency and flow direction. Report prepared by Mitchell Thompson, BS, RVT FINDINGS: RIGHT CAROTID ARTERIES: 1. Common Carotid Artery: No significant focal plaque formation of the right common carotid artery. Maximum Peak Systolic velocity: 60 cm/sec: End-diastolic velocity 15 cm/sec. 2. Carotid Bifurcation: No significant focal plaque formation. Maximum Peak Systolic velocity: 47 cm/sec: End-diastolic velocity 10 cm/sec. 3. Internal Carotid Artery: Plaque description: No significant focal plaque. 3.1. Proximal Segment: Peak systolic velocity 72 cm/sec: End-diastolic velocity 22 cm/sec - % stenosis 0-15% 3.2. Middle Segment: Peak systolic velocity 64 cm/sec: End-diastolic velocity 25 cm/sec - % stenosis 0-15% 3.3. Distal Segment: Peak systolic velocity 118 cm/sec: End-diastolic velocity 37 cm/sec - % stenosis 0-15% 4. External Carotid Artery: No significant focal plaque formation. Peak systolic velocity 98 cm/sec 5. ICA/CCA Ratio: 2.0 LEFT CAROTID ARTERIES: 1. Common Carotid Artery: No significant focal plaque formation of the left common carotid artery. Maximum Peak Systolic velocity: 72 cm/sec: End-diastolic velocity 16 cm/sec. 2. Carotid Bifurcation: No significant focal plaque formation. Maximum Peak Systolic velocity: 56 cm/sec: End-diastolic velocity 12 cm/sec. 3. Internal Carotid Artery: Plaque description: No significant focal plaque. 3.1. Proximal Segment: Peak systolic velocity 70 cm/sec: End-diastolic velocity 26 cm/sec - % stenosis 0-15% 3.2. Middle Segment: Peak systolic velocity 109 cm/sec: End-diastolic velocity 39 cm/sec - % stenosis 0-15% 3.3. Distal Segment: Peak systolic velocity 80 cm/sec: End-diastolic velocity 28 cm/sec - % stenosis 0-15% 4. External Carotid Artery: No significant focal plaque formation. Peak systolic velocity 66 cm/sec 5. ICA/CCA Ratio: 1.5 VERTEBRAL ARTERIES: 1. Right Vertebral Artery: The right vertebral artery flow direction is antegrade. 2. Left Vertebral Artery: The left vertebral artery flow direction is antegrade. OTHER FINDINGS: 1. Right Brachial Blood pressure: mmHg. 2. Left Brachial Blood pressure: mmHg. 3. No atherosclerotic calcification present 4. Multiple small thyroid nodules. IMPRESSION: RIGHT: Duplex scan does not suggest hemodynamically significant stenosis of the right extracranial carotid arteries. LEFT: Duplex scan does not suggest hemodynamically significant stenosis of the left extracranial carotid arteries. Multiple small thyroid nodules. Dedicated ultrasound recommended.
== END 2018-12-25 20:09 | disposition home or self-care (01) | DRG 312 ==
LOC: C.ER 18:03 → C.9E 21:27 → C.9I 12-23 02:22 → OBSVTOIN 12-23 21:25
PROVIDERS: ADMIT Hospitalist; ATTEND Hospitalist
DX: R55 Syncope and collapse (principal); I95.2 Hypotension due to drugs; T44.6X5A Adverse effect of alpha-adrenoreceptor antagonists, initial encounter; I12.9 Hypertensive chronic kidney disease with stage 1 through stage 4 chronic kidney disease, or unspecified chronic kidney disease; E11.22 Type 2 diabetes mellitus with diabetic chronic kidney disease; E66.01 Morbid (severe) obesity due to excess calories; R09.02 Hypoxemia; I16.0 Hypertensive urgency; D63.1 Anemia in chronic kidney disease; Z79.4 Long term (current) use of insulin; E86.0 Dehydration; F41.9 Anxiety disorder, unspecified

== ENCOUNTER 2019-03-14 08:19 | Emergency (ER) | payer MEDICARE ==
[2019-03-14 08:25] VITALS: RESP 18; O2SAT 100
--- NOTE | 2019-03-14 08:43 | C.PDOC ---
History Of Present Illness 68 year old female presents to the ED complaining of intermittent cough for one month. Associates symptoms include sore throat and subjective fever. Denies any shortness of breath, nausea, vomiting, diarrhea, or any other symptoms. Denies taking any ayzw-xuw-exshwit medications. Denies going to see PMD. Time Seen by Provider: 03/14/19 08:26 Chief Complaint (Nursing): Cough, Cold, Congestion Past Medical History Vital Signs: Last Vital Signs Temp 98.5 F 03/14/19 08:22 Pulse 72 03/14/19 08:22 Resp 18 03/14/19 08:22 BP 131/62 03/14/19 08:22 Pulse Ox 100 03/14/19 08:22 Primary Care Provider: Non [facility] Provider, - Medical History PMH: Diabetes, HTN, Hypercholesterolemia, Chronic Kidney Disease Family History: States: Unknown Family Hx - Social History Hx Alcohol Use: No Hx Substance Use: No - Immunization History Hx Tetanus Toxoid Vaccination: No Hx Influenza Vaccination: No Hx Pneumococcal Vaccination: No Review Of Systems Constitutional: Positive for: Fever ENT: Positive for: Throat Pain. Negative for: Ear Pain, Throat Swelling Cardiovascular: Negative for: Chest Pain Respiratory: Positive for: Cough. Negative for: Shortness of Breath Gastrointestinal: Negative for: Nausea, Vomiting, Diarrhea Physical Exam - Physical Exam Appears: Non-toxic, No Acute Distress Skin: Warm, Dry, No Rash Head: Normacephalic Eye(s): bilateral: Normal Inspection Ear(s): Bilateral: Normal Nose: Other (congestion ) Oral Mucosa: Moist Tongue: Normal Appearing Lips: Normal Appearing Teeth: Normal Dentition Gingiva: Normal Appearing Throat: Normal, No Erythema, No Exudate Neck: Supple Chest: Symmetrical Cardiovascular: Rhythm Regular Respiratory: Normal Breath Sounds, No Rales, No Rhonchi, No Wheezing Neurological/Psych: Oriented x3, Normal Speech Gait: Steady ED Course And Treatment O2 Sat by Pulse Oximetry: 100 (RA) Pulse Ox Interpretation: Normal Medical Decision Making Medical Decision Making: Plan - CXR CXR shows no active disease. Patient remained afebrile and in no distress. She is stable for discharge. Rx given. Disposition Counseled Patient/Family Regarding: Diagnosis, Need For Followup, Rx Given - Disposition Disposition: HOME/ ROUTINE Disposition Time: 08:40 Condition: GOOD Additional Instructions: Take Amoxicillin twice daily for one week Take cough medicine as needed every 8 hours Follow up with your doctor in one week If no improvement, develop fever, chest pain, trouble breathing then return to ED Prescriptions: Amoxicillin [Amoxil 500 mg Cap] 500 mg PO Q12 #14 cap Promethazine DM [Phenergan DM Syrup] 5 ml PO Q8 PRN #3 oz PRN Reason: Cough Instructions: Upper Respiratory Infection (ED) Forms: [employer] ([place]) - POA Present On Arrival: None - Clinical Impression Clinical Impression: Upper respiratory infection - PA / MACHINE [employer] / Resident Statement MD/DO has reviewed & agrees with the documentation as recorded. - Scribe Statement The provider has reviewed the documentation as recorded by the Scribe Joanna Jensen All medical record entries made by the Billyibmanisha were at my direction and per sonally dictated by me. I have reviewed the chart and agree that the record accurately reflects my personal performance of the history, physical exam, medical decision making, and the department course for this patient. I have also personally directed, reviewed, and agree with the discharge instructions and disposition.
--- NOTE | 2019-03-14 09:12 | RAD ---
Date of service: 03/14/2019 HISTORY: cough COMPARISON: 12/22/2018 TECHNIQUE: Chest PA and lateral views. Two views. FINDINGS: LUNGS: No active pulmonary disease. PLEURA: No significant pleural effusion identified. No pneumothorax apparent. CARDIOVASCULAR: No aortic atherosclerotic calcification present. Normal cardiac size. No pulmonary vascular congestion. OSSEOUS STRUCTURES: No significant abnormalities. VISUALIZED UPPER ABDOMEN: Normal. OTHER FINDINGS: None. IMPRESSION: No active disease.
[2019-03-14 09:58] VITALS: BP 129/82; PULSE 74; TEMP 98.7
== END 2019-03-14 09:57 | disposition home or self-care (01) ==
LOC: C.ER 08:19
DX: J06.9 Acute upper respiratory infection, unspecified (principal); Z87.891 Personal history of nicotine dependence